=== PATIENT | male | born 1960 | race Caucasian/White ===

== ENCOUNTER 2017-03-21 08:04 | Emergency (ER) | payer MEDICARE, MEDICAID ==
[2017-03-21] MEDS ORDERED: DEXAMETHASONE 10 MG/ML VIAL PO STA (09:37)
[2017-03-21] MEDS ORDERED: CHERRY SYRUP 10 ML UDC PO ONE (09:40)
[2017-03-21] MEDS ORDERED: DEXAMETHASONE 10 MG/ML VIAL ONE (09:40)
--- NOTE | 2017-03-21 09:40 | ED Physician Documentation ---
PD HPI HEENT - Stated complaint Stated Complaint: ARM PX/FEVER/FACIAL SWELLING - Chief complaint Chief Complaint: Fever - History obtained from History obtained from: Patient - History of Present Illness Timing - onset: How many months ago (5) Timing - duration: Months (5) Timing - details: Gradual onset, Still present Location: Sinuses (right maxillary) Improves: Medication Associated symptoms: Congestion, Facial swelling, Cough, Other (arm pains). 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 The pain has worsened as has the pain and congestion in his right maxillary sinus. Review of Systems Constitutional: reports: Myalgias, Fatigue, Sweats. denies: Fever, Chills Eyes: denies: Decreased vision Ears: denies: Ear pain Nose: reports: Rhinorrhea / runny nose, Congestion Throat: denies: Sore throat Cardiac: denies: Chest pain / pressure, Palpitations Respiratory: reports: Cough. denies: Dyspnea GI: denies: Abdominal Pain, Nausea, Vomiting : denies: Dysuria, Frequency Skin: denies: Rash Musculoskeletal: reports: Extremity pain, Joint pain. denies: Neck pain, Back pain, Joint swelling Neurologic: denies: Generalized weakness, Focal weakness, Numbness PD PAST MEDICAL HISTORY - Past Medical History Cardiovascular: None Respiratory: None Neuro: None Endocrine/Autoimmune: None GI: GI bleed : Other HEENT: Other Psych: None Musculoskeletal: None Derm: None - Past Surgical History Past Surgical History: Yes Ortho: Other Neuro: Other HEENT: Other - Present Medications Home Medications: Ambulatory Orders Medication Instructions Recorded Confirmed Baclofen 20 mg PO TID 07/18/14 09/04/16 Gabapentin [Neurontin] 800 mg PO TID 07/18/14 09/04/16 Azithromycin [Zithromax] 250 mg PO DAILY #6 tablet 03/21/17 Omeprazole [PriLOSEC] 0 mg PO DAILY 03/21/17 03/21/17 Oxycodone HCl/Acetaminophen 1 each PO Q6HR PRN #20 tablet 03/21/17 [Percocet 5-325 mg Tablet] - Allergies Allergies/Adverse Reactions: Allergies Allergy/AdvReac Type Severity Reaction Status Date / Time Iodinated Contrast Media - Allergy Anaphylaxis Verified 07/18/14 14:48 Oral and [Iodinated Contrast Media - IV Dye] iodine Allergy Anaphylaxis Verified 07/18/14 14:48 Penicillins Allergy Rash Verified 07/18/14 14:48 povidone-iodine Allergy Anaphylaxis Verified 07/18/14 14:48 [From Betadine] soap * [From Betadine] Allergy Anaphylaxis Verified 07/18/14 14:48 - Social History Does the pt smoke?: No Smoking Status: Never smoker Does the pt drink ETOH?: No Does the pt have substance abuse?: No - Immunizations Immunizations are current?: Yes PD ED PE NORMAL - Vitals Vital signs reviewed: Yes (hypertensive ) - General General: Alert and oriented X 3, No acute distress, Well developed/nourished - HEENT HEENT: Atraumatic, PERRL, EOMI, Other (There is minimal inflamation of the left TM the right is clear. ) - Neck Neck: Supple, no meningeal sign, No bony TTP - Cardiac Cardiac: RRR, No murmur - Respiratory Respiratory: No respiratory distress, Clear bilaterally - Abdomen Abdomen: Soft, Non tender - Back Back: No CVA TTP, No spinal TTP - Derm Derm: Normal color, Warm and dry, No rash - Extremities Extremities: No deformity, No edema, Other (There is tenderness to the lateral epicondyl bilaterally ) - Neuro Neuro: Alert and oriented X 3, No motor deficit, No sensory deficit, Normal speech - Psych Psych: Normal mood Results - Vitals Vitals: Vital Signs - 24 hr 03/21/17 03/21/17 08:16 10:59 Temperature 36.7 C 36.5 C Heart Rate 70 62 Respiratory 16 16 Rate Blood Pressure 145/64 H 128/72 O2 Saturation 98 100 Oxygen O2 Source Room air - Rads (name of study) CT sinuses Radiology: Prelim report reviewed (Impression: Extensive prior surgical changes in both maxillary sinuses, right greater than left with prior surgical resection of the right nasal turbinates, similar to prior exam. Chronic sinusitis changes in the maxillary sinuses, right greater than left, similar to prior studies. No air-fluid levels are overlying soft tissue swelling. Orbit, skull base and mastoid air cells unremarkable.), EMP read indepedently, See rad report Departure - Departure Disposition: 01 Home, Self Care Clinical Impression: Maxillary sinusitis, chronic, Tendonitis Condition: Stable Instructions: ED Sinusitis Abx Tx, ED Epicondylitis Lateral Elbow Follow-Up: MARIA DEL CARMEN PARSONS [Primary Care Provider] - Prescriptions: Oxycodone HCl/Acetaminophen [Percocet 5-325 mg Tablet] 1 each PO Q6HR PRN #20 tablet PRN Reason: Pain Azithromycin [Zithromax] 250 mg PO DAILY #6 tablet
--- NOTE | 2017-03-21 10:44 | CT Report ---
EXAM: CT PARANASAL SINUSES WITHOUT CONTRAST EXAM DATE: 03/21/2017 10:04 AM. 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 Right maxillary sinus pain and swelling currently. COMPARISONS: Similar prior studies of 08/21/2016 and 06/10/2016. TECHNIQUE: Emergent multi-axial CT imaging performed through the sinuses. Iodinated IV contrast: None . Reconstructions: Coronal and axial. In accordance with CT protocol optimization, one or more of the following dose reduction techniques w ere utilized for this exam: automated exposure control, adjustment of mA and/or KV based on patient s ize, or use of iterative reconstructive technique. FINDINGS: RIGHT Frontal: Normal. Ethmoid: Normal. Maxillary: Postsurgical changes with large nasal antral window with diffuse moderate mucoperiosteal t hickening of the remaining paranasal sinuses and thickening of the remaining medial wall, chronic and stable. No air-fluid levels. Sphenoid: Normal. 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 LEFT Frontal: Normal. Ethmoid: Opacification of single left ethmoid nodule. Otherwise clear. Maxillary: Postsurgical changes, as previously with patent nasoantral window. Small amount of mucoper iosteal thickening left maxillary sinus. No air-fluid level. Sphenoid: Normal. Drainage Pathways: Chronic occlusion secondary mucoperiosteal thickening of the ostiomeatal unit. Nasal Cavity: Nasal septum in the midline. Previous surgical resection of the majority of the right n ben turbinates. Moderate nonocclusive thickening of the left nasal turbinates, similar to prior stud ies. Osseous Structures: No acute osseous abnormality. Extensive postsurgical changes and/or posttraumatic changes right maxillary sinus osseous structures, stable. Orbits: Unremarkable. Other: None. IMPRESSION: Extensive prior postsurgical changes in both maxillary sinuses, right greater than left w ith prior surgical resection of the right nasal turbinates, similar to prior exam. Chronic sinusitis changes in the maxillary sinuses, right greater than left, similar to prior studies . No air-fluid levels or overlying soft tissue swelling. Orbits, skull base and mastoid air cells unremarkable. [facility] Referring Provider Line: [phone] SITE ID: [id number]
[2017-03-21 10:59] VITALS: BP 128/72
[2017-03-21] MEDS ORDERED: cefTRIAXone 1 GM VIAL IM STA (11:22)
[2017-03-21] MEDS ORDERED: cefTRIAXone 1 GM VIAL ONE (11:24)
[2017-03-21] MEDS ORDERED: LIDOCAINE 1% 2 ML VIAL ONE (11:25)
== END 2017-03-21 11:35 | disposition home or self-care (01) ==
LOC: ED 08:04
DX: J32.0 Chronic maxillary sinusitis (principal); M77.8 Other enthesopathies, not elsewhere classified; Z85.22 Personal history of malignant neoplasm of nasal cavities, middle ear, and accessory sinuses; Z85.47 Personal history of malignant neoplasm of testis
CPT/HCPCS: 70486; 96372; 99283; A9270

== ENCOUNTER 2018-07-27 13:41 | Outpatient (CLI) | payer MEDICARE, MEDICAID ==
[2018-07-27] MEDS ORDERED: GADOBUTROL 10 MMOL/10 ML VIAL ONE (14:41)
[2018-07-27] MEDS ORDERED: GADOBUTROL 10 MMOL/10 ML VIAL IVP ONE (15:08)
--- NOTE | 2018-07-27 16:36 | MRI Report ---
Reason: MIGRAINE, INTRACTABLE, HX 2 RT SIDED BRAIN TUMORS Procedure Date: 07/27/2018 Accession Number: [id number] / [id number] Procedure: MRI - Brain W/WO CPT Code: FULL RESULT: EXAM: MRI BRAIN WITHOUT AND WITH CONTRAST EXAM DATE: 07/27/2018 03:23 PM. CLINICAL HISTORY: MIGRAINE, INTRACTABLE, HX 2 RT SIDED BRAIN TUMORS. COMPARISON: CT head 08/31/2016., CT sinus 03/21/2017 TECHNIQUE: Multiplanar, multisequence T1-weighted and fluid-sensitive MR sequences of the brain were performed. Sequences optimized for routine evaluation. Other: None. IV Contrast: 10 cc IV Gadavist. FINDINGS: Diffusion weighted sequence shows no evidence for acute infarct. There is no mass, mass effect, midline shift or abnormal extraaxial fluid collection. Size and configuration of the ventricles are normal. Signal in the cortex and white matter appears normal. Brainstem and cerebellum appear normal. Major intracranial flow voids appear normal. Limited evaluation of the arteries and dural venous sinus structures on postcontrast imaging appears normal. There is no abnormal parenchymal, meningeal or leptomeningeal enhancement. Globes, orbits, optic nerve sheath complex, optic chiasm, pituitary, cavernous sinus and Meckel's cave appear normal. Limited views of the paranasal sinuses shows diffuse mucosal thickening in the right maxillary sinus antrum, with changes related to right medial maxillary antrostomy. Minimal mucosal thickening in the anterior ethmoid air cells and left frontoethmoidal recess. Marrow signal and extracranial soft tissue appear normal. Craniocervical junction and visualized upper cervical cord appear unremarkable. IMPRESSION: 1. Unremarkable MRI of the brain without and with contrast. 2. Redemonstrated are chronic changes of right maxillary sinus surgeries, better demonstrated on prior sinus CT. [facility]
== END 2018-07-27 13:42 | disposition home or self-care (01) ==
LOC: DI 13:41
PROVIDERS: ATTEND Physician Assistant Medical
DX: G43.919 Migraine, unspecified, intractable, without status migrainosus (principal)
CPT/HCPCS: 70553; A9585

== ENCOUNTER 2018-11-05 06:46 | Emergency (ER) | payer MEDICARE, MEDICAID ==
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
[2018-11-05] MEDS: HYDROcod/ACETAM 5/325 MG TABLET PO STA (07:41)
--- NOTE | 2018-11-05 08:34 | CT Report ---
Reason: Fall with head injury. Procedure Date: 11/05/2018 Accession Number: [id number] / [id number] Procedure: CT - Head W/O CPT Code: FULL RESULT: EXAM: CT HEAD EXAM DATE: 11/05/2018 07:49 AM. CLINICAL HISTORY: Fall with head injury. COMPARISON: HEAD W/O 08/31/2016 2:47 PM. TECHNIQUE: Multiaxial CT images were obtained from the foramen magnum to the vertex. Reformats: Sagittal and coronal. IV contrast: None. In accordance with CT protocol optimization, one or more of the following dose reduction techniques were utilized for this exam: automated exposure control, adjustment of mA and/or KV based on patient size, or use of iterative reconstructive technique. FINDINGS: Parenchyma: No intraparenchymal hemorrhage. No evidence of mass, midline shift, or CT findings of infarction. Kebede-white differentiation is distinct. Extraaxial Spaces: Normal for age. No subdural or epidural collections identified. Ventricles: Normal in size and position. Sinuses and Orbits: Imaged paranasal sinuses, orbits, and mastoids show no significant abnormality. Bones: No evidence of recent fracture or calvarial defect. Prior right maxillary sinus surgery. Other: None. IMPRESSION: No evidence for fracture or intracranial hemorrhage. [facility]
--- NOTE | 2018-11-05 08:36 | XRAY Report ---
Reason: left chest pain after falling. Procedure Date: 11/05/2018 Accession Number: [id number] / [id number] Procedure: XR - Chest 2 View X-Ray CPT Code: 60893 FULL RESULT: EXAM: CHEST RADIOGRAPHY EXAM DATE: 11/05/2018 07:59 AM. CLINICAL HISTORY: Left chest pain after falling. COMPARISON: CHEST 2 VIEW PA/LAT 09/04/2016 5:38 AM. TECHNIQUE: 2 views. FINDINGS: Lungs/Pleura: No focal opacities evident. No pleural effusion. No pneumothorax. Normal volumes. Mediastinum: Heart and mediastinal contours are unremarkable. Other: Mild mid thoracic kyphosis appears similar to prior study. Mild anterior wedging of several adjacent mid to lower thoracic vertebral bodies could be from degenerative changes and/or prior compression fractures. IMPRESSION: 1. No acute abnormality demonstrated. [facility]
[2018-11-05 09:21] VITALS: BP 134/88
== END 2018-11-05 09:40 | disposition home or self-care (01) ==
LOC: ED 06:46
DX: S00.83XA Contusion of other part of head, initial encounter (principal); S20.212A Contusion of left front wall of thorax, initial encounter; W01.0XXA Fall on same level from slipping, tripping and stumbling without subsequent striking against object, initial encounter; Y92.009 Unspecified place in unspecified non-institutional (private) residence as the place of occurrence of the external cause; R29.818 Other symptoms and signs involving the nervous system
CPT/HCPCS: 70450; 71046; 99283; A9270

== ENCOUNTER 2019-02-17 22:01 | Inpatient (IN) | payer MEDICARE, MEDICAID ==
--- NOTE | 2019-02-17 22:19 | ED Physician Documentation ---
History of Present Illness - Stated complaint Stated Complaint: VOMITING - Chief complaint Chief Complaint: General - History obtained from History obtained from: Patient - History of Present Illness Timing: Today Pain level now: 4 Improved by: nothing Worsened by: PO intake (solids only) - Additonal information Additional information: c/o nausea, vomiting since this morning, although he says he has had increasing difficulty tolerating PO solids for approximately 1 week. He also c/o left flank pain that radiates to left side of back x several days. Review of Systems Constitutional: reports: Reviewed and negative Cardiac: reports: Reviewed and negative Respiratory: reports: Reviewed and negative GI: reports: Abdominal Pain (left flank and LUQ), Nausea, Vomiting. denies: Abdominal Swelling, Constipation, Diarrhea : denies: Dysuria, Frequency Skin: reports: Reviewed and negative Musculoskeletal: reports: Reviewed and negative Neurologic: reports: Headache. denies: Generalized weakness, Focal weakness, Numbness, Confused, Altered mental status PD PAST MEDICAL HISTORY - Past Medical History Cardiovascular: None Respiratory: None Neuro: Headaches, Other (Brain tumor resection, with residual chronic motor deficits.) Endocrine/Autoimmune: None GI: GI bleed : Other HEENT: Other Psych: None Musculoskeletal: None Derm: None - Past Surgical History Past Surgical History: Yes Ortho: Other Neuro: Other HEENT: Other - Present Medications Home Medications: Ambulatory Orders Medication Instructions Recorded Confirmed Baclofen 20 mg PO TID 07/18/14 09/04/16 Gabapentin [Neurontin] 800 mg PO TID 07/18/14 09/04/16 Acetaminophen/Diphenhydramine 11/05/18 [Tylenol Pm Ex-Strength Caplet] Topiramate 11/05/18 - Allergies Allergies/Adverse Reactions: Allergies Allergy/AdvReac Type Severity Reaction Status Date / Time Iodinated Contrast- Oral and Allergy Anaphylaxis Verified 02/17/19 22:13 IV Dye [Iodinated Contrast Media - IV Dye] iodine Allergy Anaphylaxis Verified 02/17/19 22:13 Penicillins Allergy Rash Verified 02/17/19 22:13 povidone-iodine Allergy Anaphylaxis Verified 02/17/19 22:13 [From Betadine] soap * [From Betadine] Allergy Anaphylaxis Verified 02/17/19 22:13 - Social History Does the pt smoke?: No Smoking Status: Never smoker Does the pt drink ETOH?: No Does the pt have substance abuse?: No - Immunizations Immunizations are current?: Yes PD ED PE NORMAL - Vitals Vital signs reviewed: Yes - General General: Alert and oriented X 3, Well developed/nourished, Other (appears uncomfortable, presumably due to nausea (vomits many times during H+P)) - Neck Neck: Supple, no meningeal sign - Cardiac Cardiac: RRR, No murmur, No gallop, No rub - Respiratory Respiratory: No respiratory distress, Clear bilaterally - Abdomen Abdomen: Normal bowel sounds, Soft, Non tender, Non distended - Back Back: Other (mild left CVA tenderness) - Derm Derm: Normal color, Warm and dry - Extremities Extremities: No edema - Neuro Neuro: Alert and oriented X 3, drafter tool design 2-12 intact, No motor deficit, No sensory deficit, Normal speech Results - Vitals Vitals: Vital Signs - 24 hr 02/17/19 02/17/19 02/18/19 22:05 23:29 00:00 Temperature 36.3 C L Heart Rate 90 65 65 Respiratory 17 18 16 Rate Blood Pressure 143/106 H 145/95 H 139/91 H O2 Saturation 96 96 94 02/18/19 02/18/19 00:22 00:57 Temperature Heart Rate 65 63 Respiratory 18 17 Rate Blood Pressure 139/91 H 137/95 H O2 Saturation 99 97 Oxygen O2 Source Room air - Labs Labs: Laboratory Tests 02/17/19 02/17/19 02/17/19 22:45 22:45 22:45 WBC 7.8 RBC 5.37 Hgb 15.9 Hct 47.0 MCV 87.5 MCH 29.6 MCHC 33.8 RDW 13.9 Plt Count 229 MPV 10.1 Neut # (Auto) 4.3 Lymph # (Auto) 2.8 [place] # (Auto) 0.5 Eos # (Auto) 0.2 Baso # (Auto) 0.1 Absolute Nucleated RBC 0.00 Nucleated RBC % 0.0 Bld Gas Analysis Time Sample Site ABG pH ABG pCO2 ABG pO2 ABG HCO3 ABG Total CO2 ABG O2 Saturation ABG Base Excess Elmer Test Room Air FiO2 Sodium 132 L Potassium 4.1 Chloride 91 L Carbon Dioxide 21 Anion Gap 20.0 H BUN 19 Creatinine 1.3 H Estimated GFR (MDRD) 57 L Glucose 684 H* POC Whole Bld Glucose Calcium 9.8 Total Bilirubin 1.6 H AST 30 ALT 33 Alkaline Phosphatase 143 H Total Protein 8.9 H Albumin 5.0 Globulin 3.9 Albumin/Globulin Ratio 1.3 Lipase 26 Urine Color Urine Clarity Urine pH Ur Specific [place] Urine Protein Urine Glucose (UA) Urine Ketones Urine Occult Blood Urine Nitrite Urine Bilirubin Urine Urobilinogen Ur Leukocyte Esterase Ur Microscopic Review Urine Culture Comments Serum Ketones SMALL H 02/17/19 02/18/19 02/18/19 23:49 00:00 00:40 WBC RBC Hgb Hct MCV MCH MCHC RDW Plt Count MPV Neut # (Auto) Lymph # (Auto) [place] # (Auto) Eos # (Auto) Baso # (Auto) Absolute Nucleated RBC Nucleated RBC % Bld Gas Analysis Time 0004 Sample Site LEFT RADIAL ABG pH 7.34 L ABG pCO2 35 ABG pO2 82 ABG HCO3 18.5 L ABG Total CO2 19.6 L ABG O2 Saturation 95 ABG Base Excess -6.3 L Elmer Test POSITIVE Room Air YES FiO2 0.21 Sodium Potassium Chloride Carbon Dioxide Anion Gap BUN Creatinine Estimated GFR (MDRD) Glucose POC Whole Bld Glucose 456 H Calcium Total Bilirubin AST ALT Alkaline Phosphatase Total Protein Albumin Globulin Albumin/Globulin Ratio Lipase Urine Color YELLOW Urine Clarity CLEAR Urine pH 5.5 Ur Specific [place] 1.010 Urine Protein TRACE Urine Glucose (UA) >=1000 H Urine Ketones 40 H Urine Occult Blood TRACE-INTA Urine Nitrite NEGATIVE Urine Bilirubin NEGATIVE Urine Urobilinogen 0.2 (NORMAL) Ur Leukocyte Esterase NEGATIVE Ur Microscopic Review NOT INDICATED Urine Culture Comments NOT INDICATED Serum Ketones PD MEDICAL DECISION MAKING - ED course Complexity details: reviewed old records, reviewed results, re-evaluated patient, considered differential, d/w patient Departure - Departure Disposition: ED Place in Observation Clinical Impression: Hyperglycemia Condition: Stable Discharge Date/Time: 02/18/19 01:48
[2019-02-17] MEDS ORDERED: ONDANSETRON 4 MG/2 ML VIAL IVP STA (22:50)
[2019-02-17] MEDS ORDERED: SODIUM CHLORIDE 0.9% 1,000 ML IV STA (22:53)
[2019-02-17 22:58] LABS: BASOPHILS # (AUTO) 0.1 10^3/uL (0.0-0.1); BASOPHILS % (AUTO) 0.7 %; EOSINOPHILS # (AUTO) 0.2 10^3/uL (0.0-0.7); EOSINOPHILS % (AUTO) 2.2 %; HGB - HEMOGLOBIN 15.9 g/dL (14.0-18.0); LYMPHOCYTES # (AUTO) 2.8 10^3/uL (1.5-3.5); LYMPHOCYTES % (AUTO) 35.5 %; MEAN CORPUSCULAR HEMOGLOBIN 29.6 pg (27.0-31.0); MEAN CORPUSCULAR HGB CONC 33.8 g/dL (32.0-36.0); MEAN CORPUSCULAR VOLUME 87.5 fL (80.0-94.0); MEAN PLATELET VOLUME 10.1 fL (7.4-11.4); MONOCYTES # (AUTO) 0.5 10^3/uL (0.0-1.0); MONOCYTES % (AUTO) 5.9 %; NEUTROPHILS # (AUTO) 4.3 10^3/uL (1.5-6.6); NEUTROPHILS % (AUTO) 55.7 %; PLT - PLATELET COUNT 229 10^3/uL (130-450); RED BLOOD COUNT 5.37 10^6/uL (4.70-6.10); RED CELL DISTRIBUTION WIDTH 13.9 % (12.0-15.0); WHITE BLOOD COUNT 7.8 x10^3/uL (4.8-10.8)
[2019-02-17 23:10] LABS: ALBUMIN/GLOBULIN RATIO 1.3 (1.0-2.2); BILIRUBIN,TOTAL 1.6 mg/dL (0.2-1.0); CALCIUM 9.8 mg/dL (8.5-10.3); CREATININE 1.3 mg/dL (0.6-1.2); TOTAL PROTEIN 8.9 g/dL (6.7-8.2)
[2019-02-17] MEDS ORDERED: SODIUM CHLORIDE 0.9% 1,000 ML IV ONE (23:17)
[2019-02-18 00:08] LABS: BILIRUBIN,URINE NEGATIVE (NEGATIVE); GLUCOSE, URINE (UA) >=1000 mg/dL (NEGATIVE); KETONES,URINE (UA) 40 mg/dL (NEGATIVE); LEUKOCYTE ESTERASE, URINE NEGATIVE (NEGATIVE); NITRITE,URINE NEGATIVE (NEGATIVE); OCCULT BLOOD,URINE TRACE-INTA (NEGATIVE); PH,URINE 5.5 PH (5.0-7.5); PROTEIN,URINE TRACE mg/dL (NEGATIVE); UROBILINOGEN,URINE 0.2 (NORMAL) E.U./dL (NORMAL)
[2019-02-18 00:09] LABS: CLARITY,URINE CLEAR (CLEAR)
[2019-02-18] MEDS ORDERED: SODIUM CHLORIDE 0.9% 1,000 ML IV STA (00:28)
[2019-02-18 00:29] LABS: ABG BASE EXCESS -6.3 mmol/L (-2.0-3.0); ABG HCO3 18.5 mmol/L (22.0-26.0); ABG OXYGEN SATURATION 95 % (94-98); ABG PCO2 35 mmHg (34-45); ABG PH 7.34 (7.35-7.45); ABG PO2 82 mmHg (80-100); ABG TCO2 19.6 MMOL/L (21.0-29.0); ALLEN TEST POSITIVE
[2019-02-18 00:31] LABS: ABG FRACTION OF INSPIRED O2 0.21
[2019-02-18] MEDS ORDERED: ONDANSETRON 4 MG/2 ML VIAL IVP PRN (01:04)
[2019-02-18] MEDS ORDERED: ONDANSETRON ODT 4 MG TABLET TL PRN (01:04)
[2019-02-18] MEDS ORDERED: oxyCODONE 5 MG TABLET PO PRN (01:04)
[2019-02-18] MEDS ORDERED: INSULIN REGULAR HUMAN 100 UNIT/1 ML 10 ML MDV IVP STA (01:11)
[2019-02-18 01:52] LABS: VBG BASE EXCESS -6.3 mmol/L (-2 - +2); VBG PCO2 39.9 mmHg (41-51); VBG PH 7.307 (7.31-7.41); VBG PO2 43.4 mmHg (25-47); VBG TOTAL CO2 20.7 mmol/L (24-29)
[2019-02-18 01:57] LABS: MAGNESIUM 2.3 mg/dL (1.7-2.8)
[2019-02-18] MEDS ORDERED: INSULIN REGULAR HUMAN 100 UNIT in SODIUM CHLORIDE 0.9% 100ML 99 ML IV SCH ×2 (02:00→09:00)
[2019-02-18] MEDS ORDERED: SODIUM CHLORIDE 0.9% 1,000 ML IV SCH (02:00)
[2019-02-18 02:20] LABS: HB2 TOTAL 15.5 g/dL; HEMOGLOBIN A1C 1.96 g/dL; HEMOGLOBIN A1C % 13.7 % (4.6-6.2)
[2019-02-18] MEDS: SODIUM CHLORIDE FLUSH 0.9% 10 ML SYRINGE IVP PRN ×3 (02:27→06:22)
--- NOTE | 2019-02-18 02:33 | HISTORY & PHYSICAL EXAMINATION ---
DATE OF SERVICE: 02/18/2019 Physician: Gayathri Fitch MD REVISED: THIS REPORT WAS ORIGINALLY SIGNED ON 02/23/2019 . REPORT MOVED TO CORRECT ACCOUNT ON 02/24/2019. PRIMARY CARE PROVIDER: Dr. Pierce. ADMITTING PROVIDER: Gayathri Fitch MD. CHIEF COMPLAINT: Nausea, vomiting and left-sided abdominal pain. HISTORY OF PRESENT ILLNESS: Patient is a difficult historian in that he is repetitive, circumferential in his history and, at times, difficult to have him stay on point. He also seems to change his history depending on which person he is speaking to with regard to duration, symptoms, etc. He is quite miserable with his nausea and vomiting. He has severe light sensitivity right now and is wearing sunglasses in a darkened room. I have reviewed both the available discharge summary [facility] His 3rd is at the bedside; they do not live together, and she states they are legally but she still takes care of him. He has known past medical history that will be addressed below. His usual status is to be mainly in bed. He does get up out of bed to transfer with crutches to a wheelchair to go get a bath, to feed himself, and he needs a little bit of help with dressing. 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 This has left him with chronic leg pain, chronic leg weakness. He lives alone. His third does come over and take care of him. They are legally . He really does not like it when she tries to give history. He, at times, interrupts her several times when she tries to help answer my questions. But again, I think he makes it worse in trying to give a history in that he does not stay focused and will wander in his conversation.Sometimes I can't tell if he is describing 2 days ago, 2 weeks ago, or 2 years ago. Nevertheless, the gist of it is that he began taking azathioprine for dysuria and bladder spasm. This was about 3 weeks ago. Ever since he started that, he just "feels miserable." He feels like he has been coming down with the flu. He has had bilateral flank pain and worsening bladder spasms. He has become very thirsty and has been drinking anything in sight. He drank a gallon of milk a couple of days ago. He has been drinking orange juice, [place], and water because he has been so thirsty. Visual changes have occurred with blurred vision, spots in front of his eyes. He has had urinary frequency. Not so much polyphagia. He has lost his appetite with his azathioprine and feels that he has lost a lot of weight in the last 2 weeks, but he cannot quantify how much weight. Today, he started having increasing nausea and has vomited a few times. When he has vomited he has vomited undigested food. He says that pieces of orange have come up after being eaten several hours ago and some of the orange had "black stuff" on it. He finally came to the emergency room because he was so miserable with the flank pain and left upper quadrant pain and was evaluated by Dr. Roshan Orosco. He is afebrile and hypertensive at 143/106. He is oxygenating well at 96% on room air. Heart rate was in the 90s. General physical exam shows a slightly distended abdomen, normal bowel sounds. He was hyponatremic, elevated anion gap to 20, elevated creatinine to 1.3 where normal is 1.1. Random glucose was 684. Total bilirubin 1.6. Alkaline phosphatase 143. Protein 8.9. Lipase is 26. CBC is normal. He does have serum ketones present. Urinalysis has glucosuria and ketonuria, but no infection. Venous blood gas has a pH of 7.34, and a base excess of -6.3. As such, he is now admitted as new-onset diabetes mellitus with DKA. PAST MEDICAL HISTORY 1. Chronic right-sided sinusitis. He had an admission for facial swelling and drainage into his mouth from dental abscess and cellulitis in August 2016. 2. 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 3. History of gastrointestinal bleed. 4. History of fecal occult blood positive stool with a negative colonoscopy in 2012. 5. History of testicular cancer, status post orchiectomy and radiation treatment in 1999. 6. Chronic trigeminal neuralgia as a complication of his angiofibroma tumor removal in the . Trigeminal neuralgia really fiercely appeared in 1991. 8. Chronic neuropathy and myelopathy of the lower extremities with right greater than left because of radiation hitting his anterior spinal cord with his testicular cancer. ALLERGIES 1. PENICILLIN, IODINE, BETADINE. 2. NAUSEA AND VOMITING WITH OXYCODONE. 3. HE GETS PRURITUS WITH PREDNISONE. MEDICATIONS 1. Acetaminophen with diphenhydramine at night. 2. Baclofen 20 mg p.o. t.i.d. 3. Neurontin 800 mg p.o. t.i.d. 4. Topamax 25 mg tablet daily. SOCIAL HISTORY: He was born in [facility]. Moved to the [place] be on the [place]. 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 He has been 3 times. Currently, he and his third are legally , but she still comes over to the house to take care of him. He has 4 children from his first marriage and 5 grandchildren. He is on SSI because of his disability and lives in his own home. 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 He never smoked, rarely drinks. Never had a problem with alcohol abuse. Did use CBD oil on a regular basis until his cousin . His cousin was the one that would formulate the tincture. Now that his cousin is , it is too expensive for him to buy. He said it was an excellent drug in relieving his neuropathy and myelopathy pain. He denies any use of cocaine, heroin, LSD, or methamphetamines. FAMILY HISTORY: Both parents of metastatic lung cancer and were heavy smokers. One half brother has lupus, one half sister is healthy. Four children are completely healthy without cancer, heart attack, stroke, neurological disorders. REVIEW OF SYSTEMS GENERAL: Positive for constitutional complaints of weight loss that is expected in the last 3 weeks with polyuria and polydipsia, but no polyphagia. ENT: Light sensitivity, blurred vision in the last few weeks, "white spots in front of his eyes" when he stands too quickly. Denies cataracts, glaucoma. ENT: Denies dysphagia, dysesthesia of the face. Positive for chronic right sinus congestion. PULMONARY: Denies coughing, wheezing, chest congestion. CARDIAC: Denies edema, orthopnea, chest pain, palpitations, shortness of breath. GASTROINTESTINAL: Abdominal gurgling and discomfort over the last few weeks. Anorexia. Denies diarrhea. Emesis started today. GENITOURINARY: Urgency, frequency. No dysuria. Flank pain has been present off and on since azathioprine started a few weeks ago; but now since being in the emergency room, that has abated. JOINTS: For some reason, his elbows hurt in the evenings, but no effusions. DERMATOLOGIC: Denies new lesions, rashes, moles. PSYCHIATRIC: Anxiety and depression. REHABILITATION TEACHER: Leg weakness, right worse than left, from the myelopathy and neuropathy. Light sensitivity. Possible cognitive deficit. Denies seizures. Has bilateral leg weakness that results in use of crutches and a wheelchair. PHYSICAL EXAMINATION He is seen in the emergency room with his currently at the bedside. VITAL SIGNS: Temperature is 36.3, pulse of 63, blood pressure of 137/95, respirations 17, saturation 97% on room air. GENERAL: He is an awake, alert, middle-aged man, unshaven, wearing sunglasses. HEENT: No facial asymmetry. Voice is slightly low and rough. NECK: Supple without any adenopathy, goiter or bruits. LUNGS: Clear to auscultation and percussion without crackles, rhonchi or wheezing. HEART: PMI is normally placed with a regular rate and rhythm. No murmurs, rubs, or gallops. ABDOMEN: Soft, doughy, slightly obese. The tenderness that was present when he came to the emergency room is no longer present. Normal bowel sounds. No masses. At this time, no flank pain. Bilateral leg weakness is present in that he can lift his legs off the bed with the left leg slightly higher than the right; but when I press on them, the legs go down and cannot go against the strength of my hand pushing down. I cannot elicit reflexes at the knees or ankles. NEUROLOGIC: Cranial nerves appear intact with 1 not tested. Strength to the upper extremities is normal. Speech is normal. LABORATORY STUDIES: Reviewed in history of present illness. ASSESSMENT/PLAN 1. Diabetic ketoacidosis. The patient presents with polydipsia, polyphagia, weight loss, and no previous history of diabetes. Plan: Observation. Even in the short time, he has been in the emergency room, his glucose has responded briskly and is now in the 400s-600s with only the use of fluids. Attestation that I anticipate patient will be discharged within [address] in ICU for insulin drip and electrolyte protocol. Continue aggressive IV fluids with 0.9 normal saline and supplement potassium, calcium, magnesium, phosphorus if deficiencies develop. Diabetic education to start. Have nursing start teaching him how to give himself insulin. 2. Type 2 diabetes mellitus, with complications of neuropathy, without long- term use of insulin. Plan: At this time, patient will start receiving diabetic education, how to give himself insulin, and will be part of that education process since she takes care of him and she would like to learn as well. 3. Myelopathy and peripheral neuropathy. Plan: PT evaluation if needed. We will see how he does in the morning. At this time, he will be bedrest when he is on the insulin drip. Once off insulin drip, we will see if he can get up to his baseline status without needing physical therapy. 4. History of urinary retention and urinary spasm. Plan: Resume baclofen. 5. Acute kidney injury secondary to free water fluid loss and dehydration. Plan: We will monitor BMP daily while he is here. continue IVF as in #1. 6. FULL CODE status. Plan: The patient states that he does not want to be kept alive or treated aggressively if he is bedbound and has such severe cognitive deficit that he does not know where he is or who people are around him. But up until that time, he wants everything done, including resuscitation if he has a cardiopulmonary arrest. 7. Deep venous thrombosis prophylaxis will be with Lovenox. 8. Nausea and vomiting, most likely secondary to new onset DKA. Plan: Zofran, Protonix will be used to control symptoms. He describes 1 episode of emesis with "black oranges." We will monitor his emesis to make sure he is not describing GI bleed. TD: 02/18/2019 01:[facility]
[2019-02-18] MEDS: PANTOPRAZOLE 40 MG VIAL IVP SCH ×2 (02:44→06:22)
[2019-02-18] MEDS: BACLOFEN 10 MG TABLET PO SCH ×4 (02:45→21:29)
[2019-02-18] MEDS: GABAPENTIN 400 MG CAPSULE PO SCH ×4 (02:45→21:30)
[2019-02-18 03:29] LABS: CALCIUM 8.4 mg/dL (8.5-10.3); CREATININE 0.9 mg/dL (0.6-1.2); MAGNESIUM 2.1 mg/dL (1.7-2.8)
[2019-02-18] MEDS ORDERED: POTASSIUM CHLORIDE 20 MEQ TABLET PO ONE ×2 (04:46→07:43)
[2019-02-18 05:20] LABS: CALCIUM 8.5 mg/dL (8.5-10.3); CREATININE 0.9 mg/dL (0.6-1.2); MAGNESIUM 2.2 mg/dL (1.7-2.8)
[2019-02-18] MEDS ORDERED: POTASSIUM CHLOR 20 MEQ/100 ML 20 MEQ/100 ML BAG IV SCH (05:38)
[2019-02-18] MEDS ORDERED: POTASSIUM CHLOR 10 MEQ/100 ML 10 MEQ/100 ML BAG IV ONE ×2 (05:46→06:43)
[2019-02-18 05:49] LABS: BASOPHILS % (AUTO) 0.3 %; EOSINOPHILS # (AUTO) 0.1 10^3/uL (0.0-0.7); EOSINOPHILS % (AUTO) 1.3 %; HGB - HEMOGLOBIN 13.7 g/dL (14.0-18.0); LYMPHOCYTES # (AUTO) 2.5 10^3/uL (1.5-3.5); LYMPHOCYTES % (AUTO) 34.2 %; MEAN CORPUSCULAR HEMOGLOBIN 29.4 pg (27.0-31.0); MEAN CORPUSCULAR VOLUME 86.4 fL (80.0-94.0); MEAN PLATELET VOLUME 9.5 fL (7.4-11.4); MONOCYTES # (AUTO) 0.3 10^3/uL (0.0-1.0); MONOCYTES % (AUTO) 4.7 %; NEUTROPHILS # (AUTO) 4.4 10^3/uL (1.5-6.6); NEUTROPHILS % (AUTO) 59.5 %; PLT - PLATELET COUNT 195 10^3/uL (130-450); RED BLOOD COUNT 4.66 10^6/uL (4.70-6.10); RED CELL DISTRIBUTION WIDTH 13.8 % (12.0-15.0); WHITE BLOOD COUNT 7.3 x10^3/uL (4.8-10.8)
[2019-02-18 05:55] LABS: CALCIUM 8.8 mg/dL (8.5-10.3); MAGNESIUM 2.1 mg/dL (1.7-2.8)
[2019-02-18] MEDS: NEUTRA-PHOS 250 MG TABLET PO SCH ×2 (06:21→08:18)
[2019-02-18] MEDS ORDERED: D5NS W/20 MEQ KCL 1,000 ML IV SCH (07:00)
[2019-02-18 08:07] LABS: HB2 TOTAL 14.4 g/dL; HEMOGLOBIN A1C 1.89 g/dL; HEMOGLOBIN A1C % 14.2 % (4.6-6.2)
[2019-02-18] MEDS: INSULIN ASPART 300 UNIT/3 ML PEN SUBQ SCH ×4 (08:45→20:27)
[2019-02-18] MEDS: INSULIN GLARGINE 300 UNIT/3 ML PEN SUBQ SCH ×2 (08:46→20:26)
[2019-02-18] MEDS ORDERED: TOPIRAMATE 25 MG TABLET PO SCH (09:00)
[2019-02-18] MEDS: SODIUM CHLORIDE FLUSH 0.9% 10 ML SYRINGE IVP SCH ×2 (09:03→16:49)
[2019-02-18 13:10] LABS: HGB - HEMOGLOBIN 13.2 g/dL (14.0-18.0)
--- NOTE | 2019-02-18 14:43 | PROVIDER PROGRESS NOTE ---
Subjective - Prog Note Date Prog Note Date: 02/18/19 - Subjective Pt reports feeling: Improved Subjective: pt report he feel better but still has some nausea but no vomiting. Pt also report he feel weak on his bilateral lower extremities " I can not walk." He denies fever, chill, chest pain. Current Medications - Current Medications Current Medications: Active Medications Acetaminophen (Tylenol) 650 mg PO Q4HR PRN PRN Reason: Pain 1 to 4 Baclofen (Lioresal) 20 mg PO TID [facility] Last Admin: 02/18/19 13:58 Dose: 20 mg Gabapentin (Neurontin) 800 mg PO TID [facility] Last Admin: 02/18/19 14:03 Dose: 800 mg Potassium Chloride/Dextrose/Sod Cl () 1,000 mls @ 125 mls/hr IV .Q8H [facility] Last Infusion: 02/18/19 11:00 Dose: 0 mls/hr Insulin Human Regular 100 unit (/ Sodium Chloride) 100 mls @ 10.39 mls/hr IV .Q9H38M [facility]; Protocol Last Titration: 02/18/19 11:01 Dose: 0 unit/hr, 0 mls/hr Insulin Aspart (Novolog) 2 - 10 unit SUBQ 0800,1200,1700,2100 [facility]; Protocol Last Admin: 02/18/19 12:25 Dose: 2 unit Insulin Glargine (Lantus Solostar) 5 unit SUBQ QDBREAKFAST [facility] Last Admin: 02/18/19 08:46 Dose: Not Given Insulin Glargine (Lantus Solostar) 10 unit SUBQ QPM [facility] Ondansetron HCl (Zofran Inj) 4 mg IVP Q6HR PRN PRN Reason: Nausea / Vomiting Last Admin: 02/18/19 09:03 Dose: 4 mg Ondansetron HCl (Zofran Odt) 4 mg TL Q6HR PRN PRN Reason: Nausea / Vomiting Oxycodone HCl (Roxicodone) 5 mg PO Q4HR PRN PRN Reason: Pain 5 to 7 Last Admin: 02/18/19 05:06 Dose: 5 mg Pantoprazole Sodium (Protonix) 40 mg IVP QDAC [facility] Last Admin: 02/18/19 06:22 Dose: 40 mg Sodium Chloride (Normal Saline Flush 0.9%) 10 ml IVP 0100,0900,1700 [facility] Last Admin: 02/18/19 09:03 Dose: 10 ml Sodium Chloride (Normal Saline Flush 0.9%) 10 ml IVP PRN PRN PRN Reason: NEEDED PER PROVIDER ORDERS Last Admin: 02/18/19 06:22 Dose: 10 ml Baclofen 40 mg PO BID 07/18/14 Gabapentin [Neurontin] 800 mg PO TID 07/18/14 Eszopiclone [Lunesta] 1 mg PO QPM PRN 02/18/19 Gabapentin [Neurontin] 400 mg PO HS 02/18/19 Ibuprofen 200 mg PO QID PRN 02/18/19 Ibuprofen/Diphenhydramine Cit [Ra Ibuprofen Pm Caplet] 1 each PO QPM 02/18/19 Objective - Vital Signs/Intake & Output Reviewed Vital Signs: Yes Vital Signs: Vital Signs x48h Temp Pulse Pulse Resp BP BP BP 02/18/19 12:44 36.6 C 67 13 123/86 H 02/18/19 11:55 63 133/95 H 02/18/19 09:00 36.4 C L 60 12 116/68 02/18/19 07:00 60 11 L 121/78 Pulse Ox 02/18/19 12:44 95 02/18/19 11:55 02/18/19 09:00 93 02/18/19 07:00 92 Intake & Output: Intake & Output 02/15/19 02/16/19 02/17/19 02/18/19 23:59 23:59 23:59 23:59 Intake Total 2009 3103.534 Output Total 200 1005 Balance 1810 2098.534 - Objective General Appearance: positive: No acute distress, Alert. negative: Lethargic Eyes Bilateral: positive: Normal inspection, PERRL, No lid inflammation, Conjunctivae nml ENT: positive: ENT inspection nml, Pharynx nml, No signs of dehydration. negative: Purulent nasal drainage, Pharyngeal erythema, Oral lesions Neck: positive: Nml inspection, Thyroid nml, No JVD, Trachea midline. negative: Thyromegaly, Lymphadenopathy (R), Lymphadenopathy (L), Stiff neck, Swelling/bruising, Tracheal deviation Respiratory: positive: Chest non-tender, No respiratory distress, Breath sounds nml. negative: Wheezes, Rales, Rhonchi Cardiovascular: positive: Regular rate & rhythm, No murmur, No gallop. negative: Irregularly irregular, Extrasystoles, Tachycardia, Bradycardia, JVD present, Systolic murmur, Diastolic murmur Peripheral Pulses: 2+ Radial (R), 2+ Radial (L), 2+ Dorsalis pedis (R), 2+ Dorsalis pedis (L) Abdomen: positive: Non-tender, No organomegaly, Nml bowel sounds, No distention. negative: Tenderness, Guarding, Rebound Back: positive: Nml inspection. negative: CVA tenderness (R), CVA tenderness (L) Skin: positive: Color nml, No rash, Warm, Dry. negative: Cyanosis, Diaphoresis, Pallor Extremities: positive: Non-tender, Nml appearance. negative: Calf tenderness, Joint swelling, [place]'s sign/cords Neurologic/Psychiatric: positive: Sensation nml. negative: Weakness, Sensory loss, Facial droop, Slurred/abnml speech, Depressed mood/affect - Lab Results Fish Bones: 02/18/19 13:00 02/18/19 05:20 Other Labs: Lab Results x24hrs 02/18/19 02/18/19 02/18/19 Range/Units 13:00 11:54 10:17 WBC (4.8-10.8) x10^3/uL RBC (4.70-6.10) 10^6/uL Hgb 13.2 L (14.0-18.0) g/dL Hct 38.4 L (42.0-52.0) % MCV (80.0-94.0) fL MCH (27.0-31.0) pg MCHC (32.0-36.0) g/dL RDW (12.0-15.0) % Plt Count (130-450) 10^3/uL MPV (7.4-11.4) fL Neut # (Auto) (1.5-6.6) 10^3/uL Lymph # (Auto) (1.5-3.5) 10^3/uL Larue # (Auto) (0.0-1.0) 10^3/uL Eos # (Auto) (0.0-0.7) 10^3/uL Baso # (Auto) (0.0-0.1) 10^3/uL Absolute Nucleated RBC x10^3/uL Nucleated RBC % /100WBC Bld Gas Analysis Time Sample Site ABG pH (7.35-7.45) ABG pCO2 (34-45) mmHg ABG pO2 (80-100) mmHg ABG HCO3 (22.0-26.0) mmol/L ABG Total CO2 (21.0-29.0) MMOL/L ABG O2 Saturation (94-98) % ABG Base Excess (-2.0-3.0) mmol/L Elmer Test VBG pH (7.31-7.41) VBG pCO2 (41-51) mmHg VBG pO2 (25-47) mmHg VBG HCO3 (23-28) mmol/L VBG Total CO2 (24-29) mmol/L VBG O2 Saturation (60-80) % VBG Base Excess (-2 - +2) mmol/L Room Air FiO2 Sodium (135-145) mmol/L Potassium (3.5-5.0) mmol/L Chloride (101-111) mmol/L Carbon Dioxide (21-32) mmol/L Anion Gap (6-13) BUN (6-20) mg/dL Creatinine (0.6-1.2) mg/dL Estimated GFR (MDRD) (>89) Glucose (70-100) mg/dL POC Whole Bld Glucose 161 H 136 H (70 - 100) mg/dL Glycated Hemoglobin (4.6-6.2) % Estim Average Glucose (70-100) Calcium (8.5-10.3) mg/dL Phosphorus (2.5-4.6) mg/dL Magnesium (1.7-2.8) mg/dL Total Bilirubin (0.2-1.0) mg/dL AST (10-42) IU/L ALT (10-60) IU/L Alkaline Phosphatase (42-121) IU/L Total Protein (6.7-8.2) g/dL Albumin (3.2-5.5) g/dL Globulin (2.1-4.2) g/dL Albumin/Globulin Ratio (1.0-2.2) Lipase (22-51) U/L Urine Color Urine Clarity (CLEAR) Urine pH (5.0-7.5) PH Ur Specific [place] (1.002-1.030) Urine Protein (NEGATIVE) mg/dL Urine Glucose (UA) (NEGATIVE) mg/dL Urine Ketones (NEGATIVE) mg/dL Urine Occult Blood (NEGATIVE) Urine Nitrite (NEGATIVE) Urine Bilirubin (NEGATIVE) Urine Urobilinogen (NORMAL) E.U./dL Ur Leukocyte Esterase (NEGATIVE) Ur Microscopic Review Urine Culture Comments Nasal Screen MRSA (PCR) (NEGATIVE) Serum Ketones (NEGATIVE) 02/18/19 02/18/19 02/18/19 Range/Units 09:17 08:20 07:16 WBC (4.8-10.8) x10^3/uL RBC (4.70-6.10) 10^6/uL Hgb (14.0-18.0) g/dL Hct (42.0-52.0) % MCV (80.0-94.0) fL MCH (27.0-31.0) pg MCHC (32.0-36.0) g/dL RDW (12.0-15.0) % Plt Count (130-450) 10^3/uL MPV (7.4-11.4) fL Neut # (Auto) (1.5-6.6) 10^3/uL Lymph # (Auto) (1.5-3.5) 10^3/uL Larue # (Auto) (0.0-1.0) 10^3/uL Eos # (Auto) (0.0-0.7) 10^3/uL Baso # (Auto) (0.0-0.1) 10^3/uL Absolute Nucleated RBC x10^3/uL Nucleated RBC % /100WBC Bld Gas Analysis Time Sample Site ABG pH (7.35-7.45) ABG pCO2 (34-45) mmHg ABG pO2 (80-100) mmHg ABG HCO3 (22.0-26.0) mmol/L ABG Total CO2 (21.0-29.0) MMOL/L ABG O2 Saturation (94-98) % ABG Base Excess (-2.0-3.0) mmol/L Elmer Test VBG pH (7.31-7.41) VBG pCO2 (41-51) mmHg VBG pO2 (25-47) mmHg VBG HCO3 (23-28) mmol/L VBG Total CO2 (24-29) mmol/L VBG O2 Saturation (60-80) % VBG Base Excess (-2 - +2) mmol/L Room Air FiO2 Sodium (135-145) mmol/L Potassium (3.5-5.0) mmol/L Chloride (101-111) mmol/L Carbon Dioxide (21-32) mmol/L Anion Gap (6-13) BUN (6-20) mg/dL Creatinine (0.6-1.2) mg/dL Estimated GFR (MDRD) (>89) Glucose (70-100) mg/dL POC Whole Bld Glucose 137 H 130 H 153 H (70 - 100) mg/dL Glycated Hemoglobin (4.6-6.2) % Estim Average Glucose (70-100) Calcium (8.5-10.3) mg/dL Phosphorus (2.5-4.6) mg/dL Magnesium (1.7-2.8) mg/dL Total Bilirubin (0.2-1.0) mg/dL AST (10-42) IU/L ALT (10-60) IU/L Alkaline Phosphatase (42-121) IU/L Total Protein (6.7-8.2) g/dL Albumin (3.2-5.5) g/dL Globulin (2.1-4.2) g/dL Albumin/Globulin Ratio (1.0-2.2) Lipase (22-51) U/L Urine Color Urine Clarity (CLEAR) Urine pH (5.0-7.5) PH Ur Specific [place] (1.002-1.030) Urine Protein (NEGATIVE) mg/dL Urine Glucose (UA) (NEGATIVE) mg/dL Urine Ketones (NEGATIVE) mg/dL Urine Occult Blood (NEGATIVE) Urine Nitrite (NEGATIVE) Urine Bilirubin (NEGATIVE) Urine Urobilinogen (NORMAL) E.U./dL Ur Leukocyte Esterase (NEGATIVE) Ur Microscopic Review Urine Culture Comments Nasal Screen MRSA (PCR) (NEGATIVE) Serum Ketones (NEGATIVE) 02/18/19 02/18/19 02/18/19 Range/Units 06:25 06:25 06:24 WBC (4.8-10.8) x10^3/uL RBC (4.70-6.10) 10^6/uL Hgb (14.0-18.0) g/dL Hct (42.0-52.0) % MCV (80.0-94.0) fL MCH (27.0-31.0) pg MCHC (32.0-36.0) g/dL RDW (12.0-15.0) % Plt Count (130-450) 10^3/uL MPV (7.4-11.4) fL Neut # (Auto) (1.5-6.6) 10^3/uL Lymph # (Auto) (1.5-3.5) 10^3/uL Larue # (Auto) (0.0-1.0) 10^3/uL Eos # (Auto) (0.0-0.7) 10^3/uL Baso # (Auto) (0.0-0.1) 10^3/uL Absolute Nucleated RBC x10^3/uL Nucleated RBC % /100WBC Bld Gas Analysis Time Sample Site ABG pH (7.35-7.45) ABG pCO2 (34-45) mmHg ABG pO2 (80-100) mmHg ABG HCO3 (22.0-26.0) mmol/L ABG Total CO2 (21.0-29.0) MMOL/L ABG O2 Saturation (94-98) % ABG Base Excess (-2.0-3.0) mmol/L Elmer Test VBG pH (7.31-7.41) VBG pCO2 (41-51) mmHg VBG pO2 (25-47) mmHg VBG HCO3 (23-28) mmol/L VBG Total CO2 (24-29) mmol/L VBG O2 Saturation (60-80) % VBG Base Excess (-2 - +2) mmol/L Room Air FiO2 Sodium (135-145) mmol/L Potassium (3.5-5.0) mmol/L Chloride (101-111) mmol/L Carbon Dioxide (21-32) mmol/L Anion Gap (6-13) BUN (6-20) mg/dL Creatinine (0.6-1.2) mg/dL Estimated GFR (MDRD) (>89) Glucose (70-100) mg/dL POC Whole Bld Glucose 201 H (70 - 100) mg/dL Glycated Hemoglobin (4.6-6.2) % Estim Average Glucose (70-100) Calcium (8.5-10.3) mg/dL Phosphorus 2.0 L (2.5-4.6) mg/dL Magnesium 2.1 (1.7-2.8) mg/dL Total Bilirubin (0.2-1.0) mg/dL AST (10-42) IU/L ALT (10-60) IU/L Alkaline Phosphatase (42-121) IU/L Total Protein (6.7-8.2) g/dL Albumin (3.2-5.5) g/dL Globulin (2.1-4.2) g/dL Albumin/Globulin Ratio (1.0-2.2) Lipase (22-51) U/L Urine Color Urine Clarity (CLEAR) Urine pH (5.0-7.5) PH Ur Specific [place] (1.002-1.030) Urine Protein (NEGATIVE) mg/dL Urine Glucose (UA) (NEGATIVE) mg/dL Urine Ketones (NEGATIVE) mg/dL Urine Occult Blood (NEGATIVE) Urine Nitrite (NEGATIVE) Urine Bilirubin (NEGATIVE) Urine Urobilinogen (NORMAL) E.U./dL Ur Leukocyte Esterase (NEGATIVE) Ur Microscopic Review Urine Culture Comments Nasal Screen MRSA (PCR) (NEGATIVE) Serum Ketones (NEGATIVE) 02/18/19 02/18/19 02/18/19 Range/Units 05:20 05:20 05:20 WBC 7.3 (4.8-10.8) x10^3/uL RBC 4.66 L (4.70-6.10) 10^6/uL Hgb 13.7 L (14.0-18.0) g/dL Hct 40.3 L (42.0-52.0) % MCV 86.4 (80.0-94.0) fL MCH 29.4 (27.0-31.0) pg MCHC 34.0 (32.0-36.0) g/dL RDW 13.8 (12.0-15.0) % Plt Count 195 (130-450) 10^3/uL MPV 9.5 (7.4-11.4) fL Neut # (Auto) 4.4 (1.5-6.6) 10^3/uL Lymph # (Auto) 2.5 (1.5-3.5) 10^3/uL Larue # (Auto) 0.3 (0.0-1.0) 10^3/uL Eos # (Auto) 0.1 (0.0-0.7) 10^3/uL Baso # (Auto) 0.0 (0.0-0.1) 10^3/uL Absolute Nucleated RBC 0.01 x10^3/uL Nucleated RBC % 0.1 /100WBC Bld Gas Analysis Time Sample Site ABG pH (7.35-7.45) ABG pCO2 (34-45) mmHg ABG pO2 (80-100) mmHg ABG HCO3 (22.0-26.0) mmol/L ABG Total CO2 (21.0-29.0) MMOL/L ABG O2 Saturation (94-98) % ABG Base Excess (-2.0-3.0) mmol/L Elmer Test VBG pH (7.31-7.41) VBG pCO2 (41-51) mmHg VBG pO2 (25-47) mmHg VBG HCO3 (23-28) mmol/L VBG Total CO2 (24-29) mmol/L VBG O2 Saturation (60-80) % VBG Base Excess (-2 - +2) mmol/L Room Air FiO2 Sodium 144 (135-145) mmol/L Potassium 3.1 L (3.5-5.0) mmol/L Chloride 107 (101-111) mmol/L Carbon Dioxide 25 (21-32) mmol/L Anion Gap 12.0 (6-13) BUN 15 (6-20) mg/dL Creatinine 1.0 (0.6-1.2) mg/dL Estimated GFR (MDRD) 77 L (>89) Glucose 221 H (70-100) mg/dL POC Whole Bld Glucose (70 - 100) mg/dL Glycated Hemoglobin 14.2 H (4.6-6.2) % Estim Average Glucose 361 H (70-100) Calcium 8.8 (8.5-10.3) mg/dL Phosphorus (2.5-4.6) mg/dL Magnesium 2.1 (1.7-2.8) mg/dL Total Bilirubin (0.2-1.0) mg/dL AST (10-42) IU/L ALT (10-60) IU/L Alkaline Phosphatase (42-121) IU/L Total Protein (6.7-8.2) g/dL Albumin (3.2-5.5) g/dL Globulin (2.1-4.2) g/dL Albumin/Globulin Ratio (1.0-2.2) Lipase (22-51) U/L Urine Color Urine Clarity (CLEAR) Urine pH (5.0-7.5) PH Ur Specific [place] (1.002-1.030) Urine Protein (NEGATIVE) mg/dL Urine Glucose (UA) (NEGATIVE) mg/dL Urine Ketones (NEGATIVE) mg/dL Urine Occult Blood (NEGATIVE) Urine Nitrite (NEGATIVE) Urine Bilirubin (NEGATIVE) Urine Urobilinogen (NORMAL) E.U./dL Ur Leukocyte Esterase (NEGATIVE) Ur Microscopic Review Urine Culture Comments Nasal Screen MRSA (PCR) (NEGATIVE) Serum Ketones (NEGATIVE) 02/18/19 02/18/19 02/18/19 Range/Units 05:15 04:22 04:15 WBC (4.8-10.8) x10^3/uL RBC (4.70-6.10) 10^6/uL Hgb (14.0-18.0) g/dL Hct (42.0-52.0) % MCV (80.0-94.0) fL MCH (27.0-31.0) pg MCHC (32.0-36.0) g/dL RDW (12.0-15.0) % Plt Count (130-450) 10^3/uL MPV (7.4-11.4) fL Neut # (Auto) (1.5-6.6) 10^3/uL Lymph # (Auto) (1.5-3.5) 10^3/uL Larue # (Auto) (0.0-1.0) 10^3/uL Eos # (Auto) (0.0-0.7) 10^3/uL Baso # (Auto) (0.0-0.1) 10^3/uL Absolute Nucleated RBC x10^3/uL Nucleated RBC % /100WBC Bld Gas Analysis Time Sample Site ABG pH (7.35-7.45) ABG pCO2 (34-45) mmHg ABG pO2 (80-100) mmHg ABG HCO3 (22.0-26.0) mmol/L ABG Total CO2 (21.0-29.0) MMOL/L ABG O2 Saturation (94-98) % ABG Base Excess (-2.0-3.0) mmol/L Elmer Test VBG pH (7.31-7.41) VBG pCO2 (41-51) mmHg VBG pO2 (25-47) mmHg VBG HCO3 (23-28) mmol/L VBG Total CO2 (24-29) mmol/L VBG O2 Saturation (60-80) % VBG Base Excess (-2 - +2) mmol/L Room Air FiO2 Sodium 142 (135-145) mmol/L Potassium 3.2 L (3.5-5.0) mmol/L Chloride 109 (101-111) mmol/L Carbon Dioxide 22 (21-32) mmol/L Anion Gap 11.0 (6-13) BUN 16 (6-20) mg/dL Creatinine 0.9 (0.6-1.2) mg/dL Estimated GFR (MDRD) 87 L (>89) Glucose 299 H (70-100) mg/dL POC Whole Bld Glucose 224 H 305 H (70 - 100) mg/dL Glycated Hemoglobin (4.6-6.2) % Estim Average Glucose (70-100) Calcium 8.5 (8.5-10.3) mg/dL Phosphorus 2.0 L (2.5-4.6) mg/dL Magnesium 2.2 (1.7-2.8) mg/dL Total Bilirubin (0.2-1.0) mg/dL AST (10-42) IU/L ALT (10-60) IU/L Alkaline Phosphatase (42-121) IU/L Total Protein (6.7-8.2) g/dL Albumin (3.2-5.5) g/dL Globulin (2.1-4.2) g/dL Albumin/Globulin Ratio (1.0-2.2) Lipase (22-51) U/L Urine Color Urine Clarity (CLEAR) Urine pH (5.0-7.5) PH Ur Specific [place] (1.002-1.030) Urine Protein (NEGATIVE) mg/dL Urine Glucose (UA) (NEGATIVE) mg/dL Urine Ketones (NEGATIVE) mg/dL Urine Occult Blood (NEGATIVE) Urine Nitrite (NEGATIVE) Urine Bilirubin (NEGATIVE) Urine Urobilinogen (NORMAL) E.U./dL Ur Leukocyte Esterase (NEGATIVE) Ur Microscopic Review Urine Culture Comments Nasal Screen MRSA (PCR) (NEGATIVE) Serum Ketones (NEGATIVE) 02/18/19 02/18/19 02/18/19 Range/Units 03:10 03:03 02:36 WBC (4.8-10.8) x10^3/uL RBC (4.70-6.10) 10^6/uL Hgb (14.0-18.0) g/dL Hct (42.0-52.0) % MCV (80.0-94.0) fL MCH (27.0-31.0) pg MCHC (32.0-36.0) g/dL RDW (12.0-15.0) % Plt Count (130-450) 10^3/uL MPV (7.4-11.4) fL Neut # (Auto) (1.5-6.6) 10^3/uL Lymph # (Auto) (1.5-3.5) 10^3/uL Larue # (Auto) (0.0-1.0) 10^3/uL Eos # (Auto) (0.0-0.7) 10^3/uL Baso # (Auto) (0.0-0.1) 10^3/uL Absolute Nucleated RBC x10^3/uL Nucleated RBC % /100WBC Bld Gas Analysis Time Sample Site ABG pH (7.35-7.45) ABG pCO2 (34-45) mmHg ABG pO2 (80-100) mmHg ABG HCO3 (22.0-26.0) mmol/L ABG Total CO2 (21.0-29.0) MMOL/L ABG O2 Saturation (94-98) % ABG Base Excess (-2.0-3.0) mmol/L Elmer Test VBG pH (7.31-7.41) VBG pCO2 (41-51) mmHg VBG pO2 (25-47) mmHg VBG HCO3 (23-28) mmol/L VBG Total CO2 (24-29) mmol/L VBG O2 Saturation (60-80) % VBG Base Excess (-2 - +2) mmol/L Room Air FiO2 Sodium 141 (135-145) mmol/L Potassium 3.5 (3.5-5.0) mmol/L Chloride 108 (101-111) mmol/L Carbon Dioxide 19 L (21-32) mmol/L Anion Gap 14.0 H (6-13) BUN 16 (6-20) mg/dL Creatinine 0.9 (0.6-1.2) mg/dL Estimated GFR (MDRD) 87 L (>89) Glucose 372 H (70-100) mg/dL POC Whole Bld Glucose 368 H (70 - 100) mg/dL Glycated Hemoglobin (4.6-6.2) % Estim Average Glucose (70-100) Calcium 8.4 L (8.5-10.3) mg/dL Phosphorus (2.5-4.6) mg/dL Magnesium 2.1 (1.7-2.8) mg/dL Total Bilirubin (0.2-1.0) mg/dL AST (10-42) IU/L ALT (10-60) IU/L Alkaline Phosphatase (42-121) IU/L Total Protein (6.7-8.2) g/dL Albumin (3.2-5.5) g/dL Globulin (2.1-4.2) g/dL Albumin/Globulin Ratio (1.0-2.2) Lipase (22-51) U/L Urine Color Urine Clarity (CLEAR) Urine pH (5.0-7.5) PH Ur Specific [place] (1.002-1.030) Urine Protein (NEGATIVE) mg/dL Urine Glucose (UA) (NEGATIVE) mg/dL Urine Ketones (NEGATIVE) mg/dL Urine Occult Blood (NEGATIVE) Urine Nitrite (NEGATIVE) Urine Bilirubin (NEGATIVE) Urine Urobilinogen (NORMAL) E.U./dL Ur Leukocyte Esterase (NEGATIVE) Ur Microscopic Review Urine Culture Comments Nasal Screen MRSA (PCR) NEGATIVE (NEGATIVE) Serum Ketones (NEGATIVE) 02/18/19 02/18/19 02/18/19 Range/Units 02:04 01:42 01:30 WBC (4.8-10.8) x10^3/uL RBC (4.70-6.10) 10^6/uL Hgb (14.0-18.0) g/dL Hct (42.0-52.0) % MCV (80.0-94.0) fL MCH (27.0-31.0) pg MCHC (32.0-36.0) g/dL RDW (12.0-15.0) % Plt Count (130-450) 10^3/uL MPV (7.4-11.4) fL Neut # (Auto) (1.5-6.6) 10^3/uL Lymph # (Auto) (1.5-3.5) 10^3/uL Larue # (Auto) (0.0-1.0) 10^3/uL Eos # (Auto) (0.0-0.7) 10^3/uL Baso # (Auto) (0.0-0.1) 10^3/uL Absolute Nucleated RBC x10^3/uL Nucleated RBC % /100WBC Bld Gas Analysis Time Sample Site ABG pH (7.35-7.45) ABG pCO2 (34-45) mmHg ABG pO2 (80-100) mmHg ABG HCO3 (22.0-26.0) mmol/L ABG Total CO2 (21.0-29.0) MMOL/L ABG O2 Saturation (94-98) % ABG Base Excess (-2.0-3.0) mmol/L Elmer Test VBG pH 7.307 L (7.31-7.41) VBG pCO2 39.9 L (41-51) mmHg VBG pO2 43.4 (25-47) mmHg VBG HCO3 19.5 L (23-28) mmol/L VBG Total CO2 20.7 L (24-29) mmol/L VBG O2 Saturation 77.0 (60-80) % VBG Base Excess -6.3 L (-2 - +2) mmol/L Room Air FiO2 Sodium (135-145) mmol/L Potassium (3.5-5.0) mmol/L Chloride (101-111) mmol/L Carbon Dioxide (21-32) mmol/L Anion Gap (6-13) BUN (6-20) mg/dL Creatinine (0.6-1.2) mg/dL Estimated GFR (MDRD) (>89) Glucose (70-100) mg/dL POC Whole Bld Glucose 377 H 412 H (70 - 100) mg/dL Glycated Hemoglobin (4.6-6.2) % Estim Average Glucose (70-100) Calcium (8.5-10.3) mg/dL Phosphorus (2.5-4.6) mg/dL Magnesium (1.7-2.8) mg/dL Total Bilirubin (0.2-1.0) mg/dL AST (10-42) IU/L ALT (10-60) IU/L Alkaline Phosphatase (42-121) IU/L Total Protein (6.7-8.2) g/dL Albumin (3.2-5.5) g/dL Globulin (2.1-4.2) g/dL Albumin/Globulin Ratio (1.0-2.2) Lipase (22-51) U/L Urine Color Urine Clarity (CLEAR) Urine pH (5.0-7.5) PH Ur Specific [place] (1.002-1.030) Urine Protein (NEGATIVE) mg/dL Urine Glucose (UA) (NEGATIVE) mg/dL Urine Ketones (NEGATIVE) mg/dL Urine Occult Blood (NEGATIVE) Urine Nitrite (NEGATIVE) Urine Bilirubin (NEGATIVE) Urine Urobilinogen (NORMAL) E.U./dL Ur Leukocyte Esterase (NEGATIVE) Ur Microscopic Review Urine Culture Comments Nasal Screen MRSA (PCR) (NEGATIVE) Serum Ketones (NEGATIVE) 02/18/19 02/18/19 02/18/19 Range/Units 01:30 01:30 00:40 WBC (4.8-10.8) x10^3/uL RBC (4.70-6.10) 10^6/uL Hgb (14.0-18.0) g/dL Hct (42.0-52.0) % MCV (80.0-94.0) fL MCH (27.0-31.0) pg MCHC (32.0-36.0) g/dL RDW (12.0-15.0) % Plt Count (130-450) 10^3/uL MPV (7.4-11.4) fL Neut # (Auto) (1.5-6.6) 10^3/uL Lymph # (Auto) (1.5-3.5) 10^3/uL Larue # (Auto) (0.0-1.0) 10^3/uL Eos # (Auto) (0.0-0.7) 10^3/uL Baso # (Auto) (0.0-0.1) 10^3/uL Absolute Nucleated RBC x10^3/uL Nucleated RBC % /100WBC Bld Gas Analysis Time Sample Site ABG pH (7.35-7.45) ABG pCO2 (34-45) mmHg ABG pO2 (80-100) mmHg ABG HCO3 (22.0-26.0) mmol/L ABG Total CO2 (21.0-29.0) MMOL/L ABG O2 Saturation (94-98) % ABG Base Excess (-2.0-3.0) mmol/L Elmer Test VBG pH (7.31-7.41) VBG pCO2 (41-51) mmHg VBG pO2 (25-47) mmHg VBG HCO3 (23-28) mmol/L VBG Total CO2 (24-29) mmol/L VBG O2 Saturation (60-80) % VBG Base Excess (-2 - +2) mmol/L Room Air FiO2 Sodium (135-145) mmol/L Potassium (3.5-5.0) mmol/L Chloride (101-111) mmol/L Carbon Dioxide (21-32) mmol/L Anion Gap (6-13) BUN (6-20) mg/dL Creatinine (0.6-1.2) mg/dL Estimated GFR (MDRD) (>89) Glucose 425 H (70-100) mg/dL POC Whole Bld Glucose 456 H (70 - 100) mg/dL Glycated Hemoglobin 13.7 H (4.6-6.2) % Estim Average Glucose 346 H (70-100) Calcium (8.5-10.3) mg/dL Phosphorus (2.5-4.6) mg/dL Magnesium 2.3 (1.7-2.8) mg/dL Total Bilirubin (0.2-1.0) mg/dL AST (10-42) IU/L ALT (10-60) IU/L Alkaline Phosphatase (42-121) IU/L Total Protein (6.7-8.2) g/dL Albumin (3.2-5.5) g/dL Globulin (2.1-4.2) g/dL Albumin/Globulin Ratio (1.0-2.2) Lipase (22-51) U/L Urine Color Urine Clarity (CLEAR) Urine pH (5.0-7.5) PH Ur Specific [place] (1.002-1.030) Urine Protein (NEGATIVE) mg/dL Urine Glucose (UA) (NEGATIVE) mg/dL Urine Ketones (NEGATIVE) mg/dL Urine Occult Blood (NEGATIVE) Urine Nitrite (NEGATIVE) Urine Bilirubin (NEGATIVE) Urine Urobilinogen (NORMAL) E.U./dL Ur Leukocyte Esterase (NEGATIVE) Ur Microscopic Review Urine Culture Comments Nasal Screen MRSA (PCR) (NEGATIVE) Serum Ketones (NEGATIVE) 02/18/19 02/17/19 02/17/19 Range/Units 00:00 23:49 22:45 WBC (4.8-10.8) x10^3/uL RBC (4.70-6.10) 10^6/uL Hgb (14.0-18.0) g/dL Hct (42.0-52.0) % MCV (80.0-94.0) fL MCH (27.0-31.0) pg MCHC (32.0-36.0) g/dL RDW (12.0-15.0) % Plt Count (130-450) 10^3/uL MPV (7.4-11.4) fL Neut # (Auto) (1.5-6.6) 10^3/uL Lymph # (Auto) (1.5-3.5) 10^3/uL Larue # (Auto) (0.0-1.0) 10^3/uL Eos # (Auto) (0.0-0.7) 10^3/uL Baso # (Auto) (0.0-0.1) 10^3/uL Absolute Nucleated RBC x10^3/uL Nucleated RBC % /100WBC Bld Gas Analysis Time 0004 Sample Site LEFT RADIAL ABG pH 7.34 L (7.35-7.45) ABG pCO2 35 (34-45) mmHg ABG pO2 82 (80-100) mmHg ABG HCO3 18.5 L (22.0-26.0) mmol/L ABG Total CO2 19.6 L (21.0-29.0) MMOL/L ABG O2 Saturation 95 (94-98) % ABG Base Excess -6.3 L (-2.0-3.0) mmol/L Elmer Test POSITIVE VBG pH (7.31-7.41) VBG pCO2 (41-51) mmHg VBG pO2 (25-47) mmHg VBG HCO3 (23-28) mmol/L VBG Total CO2 (24-29) mmol/L VBG O2 Saturation (60-80) % VBG Base Excess (-2 - +2) mmol/L Room Air YES FiO2 0.21 Sodium (135-145) mmol/L Potassium (3.5-5.0) mmol/L Chloride (101-111) mmol/L Carbon Dioxide (21-32) mmol/L Anion Gap (6-13) BUN (6-20) mg/dL Creatinine (0.6-1.2) mg/dL Estimated GFR (MDRD) (>89) Glucose (70-100) mg/dL POC Whole Bld Glucose (70 - 100) mg/dL Glycated Hemoglobin (4.6-6.2) % Estim Average Glucose (70-100) Calcium (8.5-10.3) mg/dL Phosphorus (2.5-4.6) mg/dL Magnesium (1.7-2.8) mg/dL Total Bilirubin (0.2-1.0) mg/dL AST (10-42) IU/L ALT (10-60) IU/L Alkaline Phosphatase (42-121) IU/L Total Protein (6.7-8.2) g/dL Albumin (3.2-5.5) g/dL Globulin (2.1-4.2) g/dL Albumin/Globulin Ratio (1.0-2.2) Lipase (22-51) U/L Urine Color YELLOW Urine Clarity CLEAR (CLEAR) Urine pH 5.5 (5.0-7.5) PH Ur Specific [place] 1.010 (1.002-1.030) Urine Protein TRACE (NEGATIVE) mg/dL Urine Glucose (UA) >=1000 H (NEGATIVE) mg/dL Urine Ketones 40 H (NEGATIVE) mg/dL Urine Occult Blood TRACE-INTA (NEGATIVE) Urine Nitrite NEGATIVE (NEGATIVE) Urine Bilirubin NEGATIVE (NEGATIVE) Urine Urobilinogen 0.2 (NORMAL) (NORMAL) E.U./dL Ur Leukocyte Esterase NEGATIVE (NEGATIVE) Ur Microscopic Review NOT INDICATED Urine Culture Comments NOT INDICATED Nasal Screen MRSA (PCR) (NEGATIVE) Serum Ketones SMALL H (NEGATIVE) 02/17/19 02/17/19 Range/Units 22:45 22:45 WBC 7.8 (4.8-10.8) x10^3/uL RBC 5.37 (4.70-6.10) 10^6/uL Hgb 15.9 (14.0-18.0) g/dL Hct 47.0 (42.0-52.0) % MCV 87.5 (80.0-94.0) fL MCH 29.6 (27.0-31.0) pg MCHC 33.8 (32.0-36.0) g/dL RDW 13.9 (12.0-15.0) % Plt Count 229 (130-450) 10^3/uL MPV 10.1 (7.4-11.4) fL Neut # (Auto) 4.3 (1.5-6.6) 10^3/uL Lymph # (Auto) 2.8 (1.5-3.5) 10^3/uL Larue # (Auto) 0.5 (0.0-1.0) 10^3/uL Eos # (Auto) 0.2 (0.0-0.7) 10^3/uL Baso # (Auto) 0.1 (0.0-0.1) 10^3/uL Absolute Nucleated RBC 0.00 x10^3/uL Nucleated RBC % 0.0 /100WBC Bld Gas Analysis Time Sample Site ABG pH (7.35-7.45) ABG pCO2 (34-45) mmHg ABG pO2 (80-100) mmHg ABG HCO3 (22.0-26.0) mmol/L ABG Total CO2 (21.0-29.0) MMOL/L ABG O2 Saturation (94-98) % ABG Base Excess (-2.0-3.0) mmol/L Elmer Test VBG pH (7.31-7.41) VBG pCO2 (41-51) mmHg VBG pO2 (25-47) mmHg VBG HCO3 (23-28) mmol/L VBG Total CO2 (24-29) mmol/L VBG O2 Saturation (60-80) % VBG Base Excess (-2 - +2) mmol/L Room Air FiO2 Sodium 132 L (135-145) mmol/L Potassium 4.1 (3.5-5.0) mmol/L Chloride 91 L (101-111) mmol/L Carbon Dioxide 21 (21-32) mmol/L Anion Gap 20.0 H (6-13) BUN 19 (6-20) mg/dL Creatinine 1.3 H (0.6-1.2) mg/dL Estimated GFR (MDRD) 57 L (>89) Glucose 684 H* (70-100) mg/dL POC Whole Bld Glucose (70 - 100) mg/dL Glycated Hemoglobin (4.6-6.2) % Estim Average Glucose (70-100) Calcium 9.8 (8.5-10.3) mg/dL Phosphorus (2.5-4.6) mg/dL Magnesium (1.7-2.8) mg/dL Total Bilirubin 1.6 H (0.2-1.0) mg/dL AST 30 (10-42) IU/L ALT 33 (10-60) IU/L Alkaline Phosphatase 143 H (42-121) IU/L Total Protein 8.9 H (6.7-8.2) g/dL Albumin 5.0 (3.2-5.5) g/dL Globulin 3.9 (2.1-4.2) g/dL Albumin/Globulin Ratio 1.3 (1.0-2.2) Lipase 26 (22-51) U/L Urine Color Urine Clarity (CLEAR) Urine pH (5.0-7.5) PH Ur Specific [place] (1.002-1.030) Urine Protein (NEGATIVE) mg/dL Urine Glucose (UA) (NEGATIVE) mg/dL Urine Ketones (NEGATIVE) mg/dL Urine Occult Blood (NEGATIVE) Urine Nitrite (NEGATIVE) Urine Bilirubin (NEGATIVE) Urine Urobilinogen (NORMAL) E.U./dL Ur Leukocyte Esterase (NEGATIVE) Ur Microscopic Review Urine Culture Comments Nasal Screen MRSA (PCR) (NEGATIVE) Serum Ketones (NEGATIVE) ABX Reporting Has patient been on IV antibiotics over the past 48 hours?: No Sepsis Event Note (H) - Evaluation Current Stage of Sepsis: Ruled out Assessment/Plan - Problem List (1) Diabetic ketoacidosis Impression: pt's glucose is down to 153, pt feel better. continue correct electrolytic consult with chief i dispatcher for DM education and insulin education start with slide scale start carbo control diet (2) Diabetes mellitus type 2 with ketoacidosis, uncontrolled Impression: glucose is 153 now. 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 lab monitor (5) Nausea & vomiting Impression: better, but still complain some nausea but without vomiting. pt denies abdominal pain. it seems be caused by DM-ketone continue PRN anti-emesis
[2019-02-18] MEDS ORDERED: BENZOCAINE/MENTHOL LOZENGE MM PRN (16:18)
[2019-02-18] MEDS: ACETAMINOPHEN 325 MG TABLET PO PRN (18:50)
[2019-02-18] MEDS: HYDROcod/ACETAM 5/325 MG TABLET PO SCH (20:26)
--- NOTE | 2019-02-19 01:14 | CT Report ---
Reason: headache, left facial numbness Procedure Date: 02/18/2019 Accession Number: [id number] / [id number] Procedure: CT - HEAD WO CPT Code: FULL RESULT: EXAM: CT HEAD EXAM DATE: 02/18/2019 06:41 PM. CLINICAL HISTORY: Headache, left facial numbness. COMPARISON: HEAD W/O 11/05/2018 7:40 AM BRAIN W/WO 07/27/2018 2:48 PM. TECHNIQUE: Multiaxial CT images were obtained from the foramen magnum to the vertex. Reformats: Sagittal and coronal. IV contrast: None. In accordance with CT protocol optimization, one or more of the following dose reduction techniques were utilized for this exam: automated exposure control, adjustment of mA and/or KV based on patient size, or use of iterative reconstructive technique. FINDINGS: Parenchyma: No intraparenchymal hemorrhage. No evidence of mass, midline shift, or CT findings of infarction. [place]ebede-white differentiation is distinct. Extraaxial Spaces: Normal for age. No subdural or epidural collections identified. Ventricles: Normal in size and position. Sinuses and Orbits: Mild paranasal sinus mucosal thickening. No sinus fluid levels. Bones: No evidence of fracture or calvarial defect. Other: None. IMPRESSION: Normal head CT. RADIA
[2019-02-19] MEDS: ACETAMINOPHEN 325 MG TABLET PO PRN ×2 (04:27→19:03)
[2019-02-19] MEDS: SODIUM CHLORIDE FLUSH 0.9% 10 ML SYRINGE IVP SCH ×3 (04:28→17:11)
[2019-02-19 05:43] LABS: BASOPHILS % (AUTO) 0.6 %; EOSINOPHILS # (AUTO) 0.4 10^3/uL (0.0-0.7); EOSINOPHILS % (AUTO) 6.3 %; HGB - HEMOGLOBIN 12.9 g/dL (14.0-18.0); LYMPHOCYTES % (AUTO) 46.1 %; MEAN CORPUSCULAR HEMOGLOBIN 29.5 pg (27.0-31.0); MEAN CORPUSCULAR HGB CONC 33.8 g/dL (32.0-36.0); MEAN CORPUSCULAR VOLUME 87.3 fL (80.0-94.0); MEAN PLATELET VOLUME 9.6 fL (7.4-11.4); MONOCYTES # (AUTO) 0.3 10^3/uL (0.0-1.0); MONOCYTES % (AUTO) 5.2 %; NEUTROPHILS # (AUTO) 2.7 10^3/uL (1.5-6.6); NEUTROPHILS % (AUTO) 41.8 %; PLT - PLATELET COUNT 162 10^3/uL (130-450); RED BLOOD COUNT 4.36 10^6/uL (4.70-6.10); RED CELL DISTRIBUTION WIDTH 13.9 % (12.0-15.0); WHITE BLOOD COUNT 6.5 x10^3/uL (4.8-10.8)
[2019-02-19 05:56] LABS: ALBUMIN 3.6 g/dL (3.2-5.5); ALBUMIN/GLOBULIN RATIO 1.2 (1.0-2.2); BILIRUBIN,TOTAL 0.9 mg/dL (0.2-1.0); CALCIUM 8.5 mg/dL (8.5-10.3); TOTAL PROTEIN 6.5 g/dL (6.7-8.2)
[2019-02-19] MEDS: BACLOFEN 10 MG TABLET PO SCH ×3 (06:13→21:11)
[2019-02-19] MEDS: GABAPENTIN 400 MG CAPSULE PO SCH ×3 (06:13→21:11)
[2019-02-19] MEDS: PANTOPRAZOLE 40 MG VIAL IVP SCH (06:17)
[2019-02-19] MEDS: SODIUM CHLORIDE FLUSH 0.9% 10 ML SYRINGE IVP PRN (06:17)
[2019-02-19] MEDS: INSULIN ASPART 300 UNIT/3 ML PEN SUBQ SCH ×4 (08:05→21:09)
[2019-02-19] MEDS: INSULIN GLARGINE 300 UNIT/3 ML PEN SUBQ SCH ×2 (08:06→21:10)
[2019-02-19] MEDS: HYDROcod/ACETAM 5/325 MG TABLET PO SCH (08:11)
--- NOTE | 2019-02-19 11:20 | Discharge Plan ---
Discharge Plan Disposition: Home, Self Care Condition: Poor Prescriptions: Blood-Glucose Meter [Glucometer] 1 each QID #1 each Insulin Aspart [NovoLOG] 2 - 10 unit SUBQ 0800,1200,1700,2100 #3 pen Insulin Glargine [Lantus Solostar] 10 unit SUBQ QPM #1 pen Insulin Glargine [Lantus Solostar] 8 unit SUBQ QDBREAKFAST #1 pen Lancets/Blood Glucose Strips [Fora [id number] Strp-Lnct] 1 each QID #2 combo..pkg [place], Disposable [Needle] 1 each QID #50 dis.needle Diet: Diabetic Activity Restrictions: Activity as Tolerated Shower Restrictions: No (fall precaution, caregiver closely monitor) Instruction Topics: Log Blood Sugar, Diabetes Fpc Complications, Hyperglycemia, Hypoglycemia, Diabetes Type 2 Coping, Blood Sugar Check, Insulin Injected, Insulin Types, Diabetes Carbs Additional Instructions or Follow Up instructions: you may followup your PCP in one week, discuss with PCP for your diabetes management. You initiate to use insulin for your diabetes management. Nurse educate you how to check your glucose level and how to use your insulin, how to prevent hypoglycemia and hyperglycemia. please followup all these instructions. Should your symptoms return or worsen, you may present ER, call 911 or your PCP for help. No Smoking: If you smoke, Please STOP! Call for help. Follow-up with: Bassem Pierce MD [Primary Care Provider] -
--- NOTE | 2019-02-19 14:41 | DISCHARGE SUMMARY ---
Discharge Summary Discharge Date: 02/19/19 Discharging Provider: ARGUELLO Primary Care Provider: DR. Pierce Condition at Discharge: Poor Discharge Disposition: 01 Home, Self Care Discharge Facility Name: home - ALLERGIES Allergies/Adverse Reactions: Allergies Allergy/AdvReac Type Severity Reaction Status Date / Time Iodinated Contrast- Oral and Allergy Anaphylaxis Verified 02/17/19 22:13 IV Dye [Iodinated Contrast Media - IV Dye] iodine Allergy Anaphylaxis Verified 02/17/19 22:13 Penicillins Allergy Rash Verified 02/17/19 22:13 povidone-iodine Allergy Anaphylaxis Verified 02/17/19 22:13 [From Betadine] soap * [From Betadine] Allergy Anaphylaxis Verified 02/17/19 22:13 - MEDICATIONS Home Medications: Ambulatory Orders Medication Instructions Recorded Confirmed Baclofen 40 mg PO BID 07/18/14 02/18/19 Gabapentin [Neurontin] 800 mg PO TID 07/18/14 02/18/19 Eszopiclone [Lunesta] 1 mg PO QPM PRN 02/18/19 02/18/19 Gabapentin [Neurontin] 400 mg PO HS 02/18/19 02/18/19 Ibuprofen 200 mg PO QID PRN 02/18/19 02/18/19 Ibuprofen/Diphenhydramine Cit [Ra 1 each PO QPM 02/18/19 02/18/19 Ibuprofen Pm Caplet] Blood-Glucose Meter [Glucometer] 1 each QID #1 each 02/19/19 Insulin Aspart [NovoLOG] 2 - 10 unit SUBQ 02/19/19 0800,1200,1700,2100 #3 pen Insulin Glargine [Lantus Solostar] 8 unit SUBQ QDBREAKFAST #1 pen 02/19/19 Insulin Glargine [Lantus Solostar] 10 unit SUBQ QPM #1 pen 02/19/19 Lancets/Blood Glucose Strips [Fora 1 each QID #2 combo..pkg 02/19/19 [id number] Strp-Lnct] [place], Disposable [Needle] 1 each QID #50 dis.needle 02/19/19 - LABS Result Diagrams: 02/19/19 05:05 02/19/19 05:05 - SEPSIS Current Stage of Sepsis: Ruled out
--- NOTE | 2019-02-19 17:59 | PROVIDER PROGRESS NOTE ---
Subjective - Prog Note Date Prog Note Date: 02/19/19 - Subjective Pt reports feeling: Improved Subjective: we sent all DM glucose control treatment equipment, Pen insulin prescription to Josh pt's pharmacy. SW and case management report pt only need pay around $100 per month. but pt state he can not pay, he rather . pt need insulin tonight We send all DM DM glucose control treatment equipment, vial insulin to [facility]. Finally the mendez is down to around $29 per month but [facility] closed at 6pm, but pt can not catch the time to get the insulin. The discharge order hold is because of pt's safety discharge Current Medications - Current Medications Current Medications: Active Medications Acetaminophen (Tylenol) 650 mg PO Q4HR PRN PRN Reason: Pain 1 to 4 Last Admin: 02/19/19 04:27 Dose: 650 mg Hydrocodone Bitart/Acetaminophen ([place] 5/325) 1 tab PO DAILY [facility] Last Admin: 02/19/19 08:11 Dose: 1 tab Baclofen (Lioresal) 20 mg PO TID [facility] Last Admin: 02/19/19 13:38 Dose: 20 mg Gabapentin (Neurontin) 800 mg PO TID [facility] Last Admin: 02/19/19 13:38 Dose: 800 mg Insulin Aspart (Novolog) 2 - 10 unit SUBQ 0800,1200,1700,2100 [facility]; Protocol Last Admin: 02/19/19 17:11 Dose: 6 unit Insulin Glargine (Lantus Solostar) 10 unit SUBQ QPM [facility] Last Admin: 02/18/19 20:26 Dose: 10 unit Insulin Glargine (Lantus Solostar) 8 unit SUBQ QDBREAKFAST [facility] Ondansetron HCl (Zofran Inj) 4 mg IVP Q6HR PRN PRN Reason: Nausea / Vomiting Last Admin: 02/18/19 09:03 Dose: 4 mg Ondansetron HCl (Zofran Odt) 4 mg TL Q6HR PRN PRN Reason: Nausea / Vomiting Oxycodone HCl (Roxicodone) 5 mg PO Q4HR PRN PRN Reason: Pain 5 to 7 Last Admin: 02/18/19 05:06 Dose: 5 mg Pantoprazole Sodium (Protonix) 40 mg IVP QDAC [facility] Last Admin: 02/19/19 06:17 Dose: 40 mg Sodium Chloride (Normal Saline Flush 0.9%) 10 ml IVP 0100,0900,1700 [facility] Last Admin: 02/19/19 17:11 Dose: 10 ml Sodium Chloride (Normal Saline Flush 0.9%) 10 ml IVP PRN PRN PRN Reason: NEEDED PER PROVIDER ORDERS Last Admin: 02/19/19 06:17 Dose: 10 ml Throat Lozenges (Cepacol) 1 lozenge MM Q2HR PRN PRN Reason: Throat pain Last Admin: 02/18/19 16:30 Dose: 1 lozenge Baclofen 40 mg PO BID 07/18/14 Gabapentin [Neurontin] 800 mg PO TID 07/18/14 Eszopiclone [Lunesta] 1 mg PO QPM PRN 02/18/19 Gabapentin [Neurontin] 400 mg PO HS 02/18/19 Ibuprofen 200 mg PO QID PRN 02/18/19 Ibuprofen/Diphenhydramine Cit [Ra Ibuprofen Pm Caplet] 1 each PO QPM 02/18/19 Objective - Vital Signs/Intake & Output Reviewed Vital Signs: Yes Vital Signs: Vital Signs x48h Temp Pulse Resp BP Pulse Ox 02/19/19 13:00 36.8 C 70 14 140/78 H 95 Intake & Output: Intake & Output 02/16/19 02/17/19 02/18/19 02/19/19 23:59 23:59 23:59 23:59 Intake Total 2009 4644.000 1230 Output Total 200 1005 1025 Balance 1810 3639.000 205 - Objective General Appearance: positive: No acute distress, Alert. negative: Lethargic Eyes Bilateral: positive: Normal inspection, PERRL, No lid inflammation, Conjunctivae nml ENT: positive: ENT inspection nml, Pharynx nml, No signs of dehydration. negative: Purulent nasal drainage, Pharyngeal erythema, Oral lesions Neck: positive: Nml inspection, Thyroid nml, No JVD, Trachea midline. negative: Thyromegaly, Lymphadenopathy (R), Lymphadenopathy (L), Stiff neck, Swelling/bruising, Tracheal deviation Respiratory: positive: Chest non-tender, No respiratory distress, Breath sounds nml. negative: Wheezes, Rales, Rhonchi Cardiovascular: positive: Regular rate & rhythm, No murmur, No gallop. negative: Irregularly irregular, Extrasystoles, Tachycardia, Bradycardia, JVD present, Systolic murmur, Diastolic murmur Peripheral Pulses: 2+ Radial (R), 2+ Radial (L), 2+ Dorsalis pedis (R), 2+ Dorsalis pedis (L) Abdomen: positive: Non-tender, No organomegaly, Nml bowel sounds, No distention. negative: Tenderness, Guarding, Rebound Back: positive: Nml inspection. negative: CVA tenderness (R), CVA tenderness (L) Skin: positive: Color nml, No rash, Warm, Dry. negative: Cyanosis, Diaphoresis, Pallor Extremities: positive: Non-tender, Full ROM, Nml appearance. negative: Calf tenderness, Joint swelling, [place]'s sign/cords Neurologic/Psychiatric: positive: Oriented x3, Mood/affect nml. negative: Weakness, Sensory loss, Facial droop, Slurred/abnml speech, Depressed mood/affect - Lab Results Fish Bones: 02/19/19 05:05 02/19/19 05:05 Other Labs: Lab Results x24hrs 02/19/19 02/19/19 02/19/19 Range/Units 17:08 11:55 07:42 WBC (4.8-10.8) x10^3/uL RBC (4.70-6.10) 10^6/uL Hgb (14.0-18.0) g/dL Hct (42.0-52.0) % MCV (80.0-94.0) fL MCH (27.0-31.0) pg MCHC (32.0-36.0) g/dL RDW (12.0-15.0) % Plt Count (130-450) 10^3/uL MPV (7.4-11.4) fL Neut # (Auto) (1.5-6.6) 10^3/uL Lymph # (Auto) (1.5-3.5) 10^3/uL [place] # (Auto) (0.0-1.0) 10^3/uL Eos # (Auto) (0.0-0.7) 10^3/uL Baso # (Auto) (0.0-0.1) 10^3/uL Absolute Nucleated RBC x10^3/uL Nucleated RBC % /100WBC Sodium (135-145) mmol/L Potassium (3.5-5.0) mmol/L Chloride (101-111) mmol/L Carbon Dioxide (21-32) mmol/L Anion Gap (6-13) BUN (6-20) mg/dL Creatinine (0.6-1.2) mg/dL Estimated GFR (MDRD) (>89) Glucose (70-100) mg/dL POC Whole Bld Glucose 228 H 269 H 243 H (70 - 100) mg/dL Calcium (8.5-10.3) mg/dL Total Bilirubin (0.2-1.0) mg/dL AST (10-42) IU/L ALT (10-60) IU/L Alkaline Phosphatase (42-121) IU/L Total Protein (6.7-8.2) g/dL Albumin (3.2-5.5) g/dL Globulin (2.1-4.2) g/dL Albumin/Globulin Ratio (1.0-2.2) 02/19/19 02/19/19 02/18/19 Range/Units 05:05 05:05 20:16 WBC 6.5 (4.8-10.8) x10^3/uL RBC 4.36 L (4.70-6.10) 10^6/uL Hgb 12.9 L (14.0-18.0) g/dL Hct 38.1 L (42.0-52.0) % MCV 87.3 (80.0-94.0) fL MCH 29.5 (27.0-31.0) pg MCHC 33.8 (32.0-36.0) g/dL RDW 13.9 (12.0-15.0) % Plt Count 162 (130-450) 10^3/uL MPV 9.6 (7.4-11.4) fL Neut # (Auto) 2.7 (1.5-6.6) 10^3/uL Lymph # (Auto) 3.0 (1.5-3.5) 10^3/uL [place] # (Auto) 0.3 (0.0-1.0) 10^3/uL Eos # (Auto) 0.4 (0.0-0.7) 10^3/uL Baso # (Auto) 0.0 (0.0-0.1) 10^3/uL Absolute Nucleated RBC 0.01 x10^3/uL Nucleated RBC % 0.1 /100WBC Sodium 139 (135-145) mmol/L Potassium 3.9 (3.5-5.0) mmol/L Chloride 107 (101-111) mmol/L Carbon Dioxide 24 (21-32) mmol/L Anion Gap 8.0 (6-13) BUN 12 (6-20) mg/dL Creatinine 1.0 (0.6-1.2) mg/dL Estimated GFR (MDRD) 77 L (>89) Glucose 260 H (70-100) mg/dL POC Whole Bld Glucose 317 H (70 - 100) mg/dL Calcium 8.5 (8.5-10.3) mg/dL Total Bilirubin 0.9 (0.2-1.0) mg/dL AST 30 (10-42) IU/L ALT 26 (10-60) IU/L Alkaline Phosphatase 103 (42-121) IU/L Total Protein 6.5 L (6.7-8.2) g/dL Albumin 3.6 (3.2-5.5) g/dL Globulin 2.9 (2.1-4.2) g/dL Albumin/Globulin Ratio 1.2 (1.0-2.2) ABX Reporting Has patient been on IV antibiotics over the past 48 hours?: No Sepsis Event Note (H) - Evaluation Current Stage of Sepsis: Ruled out Assessment/Plan - Problem List (1) Diabetic ketoacidosis Impression: 4/6 resolved. pt feel great, anion gap is normal. pt denies N/V, glucose is control pt's glucose is down to 153, pt feel better. continue correct electrolytic consult with associate professor plant pathology for DM education and insulin education start with slide scale start carbo control diet (2) Diabetes mellitus type 2 with ketoacidosis, uncontrolled Impression: 4/6 increase Lantus to 8 unit in morning for slight increase of glucose. glucose is 153 now. 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 no complain pt complain of weakness, can not walk consult with PT/OT, will followup reconcile Gabapentin (4) JU (acute kidney injury) Impression: 4/6 resolved as his baseline improved, continue gently IVF of NS. lab monitor (5) Nausea & vomiting Impression: 4/6 resolved better, but still complain some nausea but without vomiting. pt denies abdominal pain. it seems be caused by DM-ketone continue PRN anti-emesis
[2019-02-19] MEDS ORDERED: POTASSIUM CHLORIDE 20 MEQ TABLET PO ONE (21:00)
[2019-02-19] MEDS ORDERED: HYDROcod/ACETAM 5/325 MG TABLET PO PRN ×2 (21:24→21:59)
[2019-02-20 05:11] LABS: BASOPHILS % (AUTO) 0.6 %; EOSINOPHILS # (AUTO) 0.4 10^3/uL (0.0-0.7); HGB - HEMOGLOBIN 12.7 g/dL (14.0-18.0); LYMPHOCYTES # (AUTO) 2.7 10^3/uL (1.5-3.5); LYMPHOCYTES % (AUTO) 50.3 %; MEAN CORPUSCULAR HEMOGLOBIN 29.3 pg (27.0-31.0); MEAN CORPUSCULAR HGB CONC 34.1 g/dL (32.0-36.0); MEAN CORPUSCULAR VOLUME 85.9 fL (80.0-94.0); MEAN PLATELET VOLUME 9.8 fL (7.4-11.4); MONOCYTES # (AUTO) 0.3 10^3/uL (0.0-1.0); MONOCYTES % (AUTO) 6.2 %; NEUTROPHILS # (AUTO) 1.9 10^3/uL (1.5-6.6); NEUTROPHILS % (AUTO) 35.9 %; PLT - PLATELET COUNT 153 10^3/uL (130-450); RED BLOOD COUNT 4.33 10^6/uL (4.70-6.10); RED CELL DISTRIBUTION WIDTH 13.8 % (12.0-15.0); WHITE BLOOD COUNT 5.3 x10^3/uL (4.8-10.8)
[2019-02-20 05:24] LABS: ALBUMIN 3.4 g/dL (3.2-5.5); ALBUMIN/GLOBULIN RATIO 1.2 (1.0-2.2); BILIRUBIN,TOTAL 0.9 mg/dL (0.2-1.0); CALCIUM 8.3 mg/dL (8.5-10.3); CREATININE 0.8 mg/dL (0.6-1.2); TOTAL PROTEIN 6.2 g/dL (6.7-8.2)
[2019-02-20] MEDS: BACLOFEN 10 MG TABLET PO SCH (06:46)
[2019-02-20] MEDS: GABAPENTIN 400 MG CAPSULE PO SCH (06:46)
[2019-02-20] MEDS: SODIUM CHLORIDE FLUSH 0.9% 10 ML SYRINGE IVP SCH ×2 (06:47→09:44)
[2019-02-20] MEDS: PANTOPRAZOLE 40 MG VIAL IVP SCH (06:47)
[2019-02-20] MEDS ORDERED: CARBOXYMETHYLCELLULOSE OPHTH DROPS EACHEYE PRN (07:24)
[2019-02-20] MEDS ORDERED: INSULIN GLARGINE 300 UNIT/3 ML PEN SUBQ SCH (08:00)
[2019-02-20] MEDS: INSULIN ASPART 300 UNIT/3 ML PEN SUBQ SCH (08:04)
[2019-02-20] MEDS ORDERED: POLYETHYLENE GLYCOL 3350 17 GM PACKET PO SCH (09:00)
[2019-02-20 10:24] VITALS: BP 143/92
--- NOTE | 2019-02-20 11:22 | DISCHARGE SUMMARY ---
Discharge Summary Discharge Date: 02/20/19 Discharging Provider: ARGUELLO Primary Care Provider: DR. 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 Fitch on 02/18/19 for nausea, vomiting and left sided abdominal pain. pt is poor historian. It seems pt repot to pt has been drinking lots of orange juice, very thirsty, has some visual change with blurred vision, nausea, vomiting and abdominal pain. pt was found to have over 600 glucose, and ketone and high level of anion gap in the serum. pt was admitted in ICU for DM ketosis. - HOSPITAL COURSE Hospital Course: 1) Diabetic ketoacidosis resolved. pt has no more N/V or abdominal pain. he tolerate the diet. his glucose was controlled (2) Diabetes mellitus type 2 with ketoacidosis, uncontrolled pt was educated by nurse for DM2 management, how to use insulin, how to check glucose level, how to use slide scale, how to prevent hyperglycemia and hypoglycemia. I answered pt's questions and concerns, pt verbally state he understood. pt is prescribe equipments, needs including insulin for DM management. pt is advised to followup his PCP closely for his chronic DM management. (3) Myelopathy due to diabetes mellitus improved. Pt was evaluated and treated by PT/OT. (4) JU (acute kidney injury) resolved, renal function as his baseline (5) Nausea & vomiting and abdominal pain resolved. pt tolerated diet. - ALLERGIES Allergies/Adverse Reactions: Allergies Allergy/AdvReac Type Severity Reaction Status Date / Time Iodinated Contrast- Oral and Allergy Anaphylaxis Verified 02/17/19 22:13 IV Dye [Iodinated Contrast Media - IV Dye] iodine Allergy Anaphylaxis Verified 02/17/19 22:13 Penicillins Allergy Rash Verified 02/17/19 22:13 povidone-iodine Allergy Anaphylaxis Verified 02/17/19 22:13 [From Betadine] soap * [From Betadine] Allergy Anaphylaxis Verified 02/17/19 22:13 - MEDICATIONS Home Medications: Ambulatory Orders Medication Instructions Recorded Confirmed Baclofen 40 mg PO BID 07/18/14 02/18/19 Gabapentin [Neurontin] 800 mg PO TID 07/18/14 02/18/19 Eszopiclone [Lunesta] 1 mg PO QPM PRN 02/18/19 02/18/19 Gabapentin [Neurontin] 400 mg PO HS 02/18/19 02/18/19 Ibuprofen 200 mg PO QID PRN 02/18/19 02/18/19 Ibuprofen/Diphenhydramine Cit [Ra 1 each PO QPM 02/18/19 02/18/19 Ibuprofen Pm Caplet] Blood-Glucose Meter [Glucometer] 1 each QID #1 each 02/19/19 Insulin Aspart [NovoLOG] 2 - 10 unit SUBQ 02/19/19 0800,1200,1700,2100 #3 pen Insulin Glargine [Lantus Solostar] 8 unit SUBQ QDBREAKFAST #1 pen 02/19/19 Insulin Glargine [Lantus Solostar] 10 unit SUBQ QPM #1 pen 02/19/19 Lancets/Blood Glucose Strips [Fora 1 each QID #2 combo..pkg 02/19/19 [id number] Strp-Lnct] [place], Disposable [Needle] 1 each QID #50 dis.needle 02/19/19 Syring-Needl,Disp,Insul,0.3 ml 1 each QID #100 disp.syrin 02/19/19 [[place] Insulin Syringe] - PHYSICAL EXAM AT DISCHARGE General Appearance: positive: No acute distress, Alert. negative: Lethargic Eyes Bilateral: positive: Normal inspection, PERRL, No lid inflammation, Conjunctivae nml ENT: positive: ENT inspection nml, Pharynx nml, No signs of dehydration. negative: Purulent nasal drainage, Pharyngeal erythema, Oral lesions Neck: positive: Nml inspection, Thyroid nml, No JVD, Trachea midline. negative: Thyromegaly, Lymphadenopathy (R), Lymphadenopathy (L), Stiff neck, Swelling/bruising, Tracheal deviation Respiratory: positive: Chest non-tender, No respiratory distress, Breath sounds nml. negative: Wheezes, Rales, Rhonchi Cardiovascular: positive: Regular rate & rhythm, No murmur, No gallop. negative: Irregularly irregular, Extrasystoles, Tachycardia, Bradycardia, JVD present, Systolic murmur, Diastolic murmur Peripheral Pulses: positive: 2+ Abdomen: positive: Non-tender, No organomegaly, Nml bowel sounds, No distention. negative: Tenderness, Guarding, Rebound Back: positive: Nml inspection. negative: CVA tenderness (R), CVA tenderness (L) Skin: positive: Color nml, No rash, Warm, Dry. negative: Cyanosis, Diaphoresis, Pallor Extremities: positive: Non-tender, Nml appearance. negative: Calf tenderness, Joint swelling, [place]'s sign/cords Neurologic/Psychiatric: positive: Oriented x3, Sensation nml, Mood/affect nml. negative: Weakness, Sensory loss, Facial droop, Slurred/abnml speech, Depressed mood/affect - LABS Result Diagrams: 02/20/19 04:35 02/20/19 04:35 - SEPSIS Current Stage of Sepsis: Ruled out - FOLLOW UP Follow Up: you may followup your PCP in one week, discuss with PCP for your diabetes management. You initiate to use insulin for your diabetes management. Nurse e ducate you how to check your glucose level and how to use your insulin, how to prevent hypoglycemia and hyperglycemia. please followup all these instructions. Should your symptoms return or worsen, you may present ER, call 911 or your PCP for help. - TIME SPENT Time Spent in Discharge (Minutes): 60
== END 2019-02-20 10:15 | disposition home or self-care (01) | DRG 638 ==
LOC: ED 22:01 → ICU 02-18 01:05 → UNDOADMOB 02-18 01:05 → OBSVTOIN 02-19 17:49 → UNDODISOB 02-20 10:15
PROVIDERS: ADMIT Specialist; ATTEND Specialist
DX: E11.10 Type 2 diabetes mellitus with ketoacidosis without coma (principal); N17.9 Acute kidney failure, unspecified; E87.1 Hypo-osmolality and hyponatremia; G97.82 Other postprocedural complications and disorders of nervous system; G95.89 Other specified diseases of spinal cord; G62.9 Polyneuropathy, unspecified; E11.42 Type 2 diabetes mellitus with diabetic polyneuropathy; E11.69 Type 2 diabetes mellitus with other specified complication; R33.9 Retention of urine, unspecified; N32.89 Other specified disorders of bladder; E86.0 Dehydration; G50.0 Trigeminal neuralgia; G62.82 Radiation-induced polyneuropathy; J32.9 Chronic sinusitis, unspecified; Z85.47 Personal history of malignant neoplasm of testis
CPT/HCPCS: 36415; 36600; 70450; 80048; 80053; 81003; 82009; 82803; 82947; 83036; 83690; 83735; 84100; 85014; 85018; 85025; 87150; 96361; 96365; 96366; 96368; 96375; 96376; 97161; 99283; 99284; A9270; G0378; J1815; 81001; 87086

== ENCOUNTER 2019-03-02 09:49 | Outpatient (CLI) | payer MEDICARE, MEDICAID ==
[2019-03-02 18:05] LABS: BASOPHILS % (AUTO) 1.2 %; EOSINOPHILS # (AUTO) 0.3 10^3/uL (0.0-0.7); EOSINOPHILS % (AUTO) 8.9 %; HGB - HEMOGLOBIN 13.2 g/dL (14.0-18.0); LYMPHOCYTES # (AUTO) 1.9 10^3/uL (1.5-3.5); LYMPHOCYTES % (AUTO) 53.8 %; MEAN CORPUSCULAR HEMOGLOBIN 29.3 pg (27.0-31.0); MEAN CORPUSCULAR HGB CONC 33.3 g/dL (32.0-36.0); MEAN PLATELET VOLUME 9.5 fL (7.4-11.4); MONOCYTES # (AUTO) 0.3 10^3/uL (0.0-1.0); MONOCYTES % (AUTO) 8.1 %; PLT - PLATELET COUNT 225 10^3/uL (130-450); WHITE BLOOD COUNT 3.6 x10^3/uL (4.8-10.8)
[2019-03-02 18:43] LABS: ALBUMIN 4.3 g/dL (3.2-5.5); ALBUMIN/GLOBULIN RATIO 1.6 (1.0-2.2); ALKALINE PHOSPHATASE 78 IU/L (42-121); ALT ALANINE AMINOTRANSFERASE 57 IU/L (10-60); AST ASPARTATE AMINOTRANSFERASE 51 IU/L (10-42); BILIRUBIN,TOTAL 1.2 mg/dL (0.2-1.0); BUN - BLOOD UREA NITROGEN 12 mg/dL (6-20); CARBON DIOXIDE - CO2 23 mmol/L (21-32); CHLORIDE 104 mmol/L (101-111); CHOL/HDL RATIO 6.9 (<5.0); CHOLESTEROL 172 mg/dL; CREATININE 0.8 mg/dL (0.6-1.2); GFR - MDRD 100 (>89); GLUCOSE 102 mg/dL (70-100); HDL CHOLESTEROL 25 mg/dL; LDL CHOLESTEROL,CALCULATED 120 mg/dL; LDL/HDL RATIO 4.8 (<3.6); SODIUM 136 mmol/L (135-145); VLDL CHOLESTEROL 27 mg/dL
[2019-03-02 19:02] LABS: HB2 TOTAL 14.7 g/dL; HEMOGLOBIN A1C 1.66 g/dL; HEMOGLOBIN A1C % 12.5 % (4.6-6.2)
== END 2019-03-02 09:50 | disposition home or self-care (01) ==
LOC: LAB.F 09:49
PROVIDERS: ATTEND Registered Nurse
DX: E11.9 Type 2 diabetes mellitus without complications (principal)
CPT/HCPCS: 36415; 80053; 80061; 81599; 83036; 83721; 84443; 84681; 85025

== ENCOUNTER 2019-04-28 10:24 | Outpatient (CLI) | payer MEDICARE, MEDICAID | END 2019-04-28 10:25 | disposition home or self-care (01) | LOC: NS 10:24 | PROVIDERS: ATTEND Internal Medicine | DX: Z71.3 Dietary counseling and surveillance (principal); E11.10 Type 2 diabetes mellitus with ketoacidosis without coma; E66.9 Obesity, unspecified; Z68.30 Body mass index [BMI] 30.0-30.9, adult | CPT/HCPCS: 97802 ==

== ENCOUNTER 2019-06-02 09:11 | Outpatient (CLI) | payer MEDICARE, MEDICAID ==
[2019-06-02 17:52] LABS: CALCIUM 9.4 mg/dL (8.5-10.3); CREATININE 0.9 mg/dL (0.6-1.2)
[2019-06-02 17:59] LABS: HB2 TOTAL 14.3 g/dL; HEMOGLOBIN A1C 0.61 g/dL; HEMOGLOBIN A1C % 6.1 % (4.6-6.2)
== END 2019-06-02 09:12 | disposition home or self-care (01) ==
LOC: LAB.S 09:11
PROVIDERS: ATTEND Registered Nurse
DX: E11.9 Type 2 diabetes mellitus without complications (principal)
CPT/HCPCS: 36415; 80048; 83036

== ENCOUNTER 2019-06-10 10:55 | Outpatient (CLI) | payer MEDICARE, MEDICAID | END 2019-06-10 10:56 | disposition home or self-care (01) | LOC: NS 10:55 | PROVIDERS: ATTEND Internal Medicine | DX: Z71.3 Dietary counseling and surveillance (principal); E66.9 Obesity, unspecified; E11.10 Type 2 diabetes mellitus with ketoacidosis without coma; Z68.30 Body mass index [BMI] 30.0-30.9, adult | CPT/HCPCS: 97803 ==

== ENCOUNTER 2023-05-25 09:59 | Emergency (ER) | payer MEDICARE, MEDICAID ==
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
--- NOTE | 2023-05-25 11:39 | XRAY Report ---
PROCEDURE: Elbow 3 View RT INDICATIONS: trauma/pain TECHNIQUE: 3 views of the elbow were acquired. COMPARISON: None. FINDINGS: Bones: No fractures or dislocations. No suspicious bony lesions. Soft tissues: No posterior effusion. No suspicious soft tissue calcifications or masses. IMPRESSION: No acute osseous abnormality. Reviewed by: Ruiz Lawton MD on 05/25/2023 11:37 AM PDT Approved by: Ruiz Lawton MD on 05/25/2023 11:37 AM PDT Station ID: [id number]
--- NOTE | 2023-05-25 11:40 | XRAY Report ---
PROCEDURE: Ribs w/PA Chest RT INDICATIONS: trauma/pain TECHNIQUE: 3 views of the left ribs were acquired, along with a single view chest. COMPARISON: CXR 11/05/2018. FINDINGS: Surgical changes and devices: None. Bones and chest wall: No fractures or dislocations. No suspicious bony lesions. Overlying soft tis sues appear unremarkable. Lungs and pleura: No pleural effusions or pneumothorax. Lungs appear clear. Mediastinum: Mediastinal contours appear normal. Heart size is normal. IMPRESSION: No displaced left-sided rib fracture. Reviewed by: Ruiz Lawton MD on 05/25/2023 11:39 AM PDT Approved by: Ruiz Lawton MD on 05/25/2023 11:39 AM PDT Station ID: [id number]
--- NOTE | 2023-05-25 11:42 | XRAY Report ---
PROCEDURE: Shoulder 3 View RT INDICATIONS: trauma/pain TECHNIQUE: 3 views of the shoulder were acquired. COMPARISON: None. FINDINGS: Bones: No fractures or dislocations. Mild degenerative changes at the right AC joint. No suspicious bony lesions. Visualized ribs appear intact. Soft tissues: No suspicious soft tissue calcifications. IMPRESSION: No acute bony abnormality. Reviewed by: Ruiz Lawton MD on 05/25/2023 11:40 AM PDT Approved by: Ruiz Lawton MD on 05/25/2023 11:40 AM PDT Station ID: [id number]
[2023-05-25 12:21] VITALS: BP 142/81
== END 2023-05-25 13:14 | disposition home or self-care (01) ==
LOC: EDUNIT# → ED 09:59
DX: S20.211A Contusion of right front wall of thorax, initial encounter (principal); V19.9XXA Pedal cyclist (driver) (passenger) injured in unspecified traffic accident, initial encounter; Y93.55 Activity, bike riding; Y92.89 Other specified places as the place of occurrence of the external cause; E11.9 Type 2 diabetes mellitus without complications; Z79.899 Other long term (current) drug therapy; Z79.4 Long term (current) use of insulin
CPT/HCPCS: 99284